=== PATIENT | female | born 1945 | race Hispanic/Latino ===

== ENCOUNTER 2016-07-11 08:00 | Inpatient (IN) | payer MEDICARE, OTHER ==
[2016-07-11 08:01] VITALS: BMI 41.5
[2016-07-11] MEDS ORDERED: Sodium Chloride 0.9% 500 ML IV ONE (09:13)
[2016-07-11] MEDS ORDERED: Bacitracin 500 Units/gm Oint Foilpak UD TOP ONE (09:14)
--- NOTE | 2016-07-11 09:23 | C.PDOC ---
History Of Present Illness 71-year-old female, PMHx includes Asthma and Hypertension, brought to the emergency department accompanied by son with complaints of pain to B/L lower extremities for the past three days. Patient notes associated difficulty while walking. She has Hx of intermittent cellulitis and chronic leg edema. Secondary complaint is watery/non-bloody diarrhea for the past few days with associated mild abdominal discomfort. Son reports that patient fell on to her lower back and buttocks yesterday. Patient denies any nausea/vomiting, headache/injury, LOC , fevers/chills, shortness of breath, chest pain. PMD Edmundo Carrera MD. Time Seen by Provider: 07/11/16 08:43 Chief Complaint (Nursing): GI Problem History Per: Patient, Family History/Exam Limitations: no limitations Onset/Duration Of Symptoms: Days Current Symptoms Are (Timing): Still Present Severity: Mild Past Medical History Reviewed: Historical Data, Nursing Documentation, Vital Signs Vital Signs: Last Vital Signs Temp 98.8 F 07/15/16 07:00 Pulse 120 H 07/15/16 08:00 Resp 20 07/15/16 07:00 BP 127/86 07/15/16 07:00 Pulse Ox 96 07/15/16 07:00 - Medical History PMH: Asthma ("MILD, NO INHALER/MEDS."-NEVER HOSPITALIZED), HTN Family History: States: No Known Family Hx - Social History Hx Alcohol Use: No Hx Substance Use: No - Immunization History Hx Tetanus Toxoid Vaccination: No Hx Influenza Vaccination: No Hx Pneumococcal Vaccination: No Review Of Systems Except As Marked, All Systems Reviewed And Found Negative. Constitutional: Negative for: Fever, Chills Cardiovascular: Negative for: Chest Pain, Palpitations Respiratory: Negative for: Cough, Shortness of Breath Gastrointestinal: Positive for: Abdominal Pain, Diarrhea. Negative for: Nausea , Vomiting Musculoskeletal: Positive for: Leg Pain Skin: Negative for: Rash Neurological: Negative for: Weakness, Numbness, Headache, Dizziness Physical Exam - Physical Exam Appears: Non-toxic, In Acute Distress (in moderate pain ) Skin: Warm, Dry, No Rash Head: Normacephalic Eye(s): bilateral: Normal Inspection Oral Mucosa: Moist, Other (oral thrush on tongue and oral mucosa) Neck: Normal Cardiovascular: Rhythm Regular (tachycardic ) Respiratory: Normal Breath Sounds, No Accessory Muscle Use, No Rales, No Rhonchi , No Wheezing Gastrointestinal/Abdominal: Normal Exam, Bowel Sounds, Soft, No Tenderness, No Guarding, No Rebound, Other (morbidly obese) Extremity: Pedal Edema (+2 pitting, B/L chronic skin changes and wounds without overt evidence of infection), Capillary Refill (< 2 sec all digits ), No Deformity Pulses: Left Dorsalis Pedis: Normal, Right Dorsalis Pedis: Normal Neurological/Psych: Oriented x3 ED Course And Treatment - Laboratory Results Result Diagrams: 07/15/16 07:28 07/15/16 07:28 O2 Sat by Pulse Oximetry: 97 (RA) Pulse Ox Interpretation: Normal Progress Note: Blood work, UA ordered and reviewed. Patient given IV NS bolus, IV morphine. Ct scan abd/pelvis ordered due to persistent abdominal pain and significant leukocytosis. IV Ciprofloxacin and IV Flagyl ordered for colitis/ proctitis. - Physician Consult Information Physician Contacted: Edmundo Carrera Jr. Outcome Of Conversation: Spoke with Dr. Carrera, he agrees with admission for colitis/proctitis, dehydration, leukocytosis with bandemia, chronic leg wounds/ edema. [employer] notified of admission. Disposition - Disposition Disposition: HOSPITALIZED Disposition Time: 12:33 Condition: STABLE - Clinical Impression Clinical Impression: Colitis, Proctitis, Diarrhea, Chronic leg pain, Dehydration - Scribe Statement Nancy Dove All medical record entries made by the Scribe were at my direction and personally dictated by me. I have reviewed the chart and agree that the record accurately reflects my personal performance of the history, physical exam, medical decision making, and the department course for this patient. I have also personally directed, reviewed, and agree with the discharge instructions and disposition. Decision To Admit - Pt Status Changed To: Hospital Disposition Of: Inpatient - Admit Certification Admit to Inpatient:: After my assessment, the patient will require hospitalization for at least two midnights. This is because of the severity of symptoms shown, intensity of services needed, and/or the medical risk in this patient being treated as an outpatient. - InPatient: Physician Admission Certification: I certify that this patient requires 2 or more midnights of care for the following reason:: see notes - . Bed Request Type: Regular Admitting Physician: Edmundo Carrera Jr. Patient Diagnosis: Colitis, Proctitis, Diarrhea, Dehydration, Chronic leg pain, Leukocytosis
[2016-07-11 09:24] LABS: BASO # 0.1 K/uL (0.0-0.2); BASO % 0.3 % (0.0-2.0); EOS % 0.1 % (0.0-4.0); HEMATOCRIT 38.5 % (34.0-47.0); LYMPH # 1.1 K/uL (1.0-4.3); LYMPH % 5.7 % (20.0-40.0); MEAN CORPUSCULAR HEMOGLOBIN 28.4 pg (27.0-31.0); MEAN CORPUSCULAR HGB CONC 32.1 g/dL (33.0-37.0); MEAN PLATELET VOLUME 8.8 fL (7.2-11.7); MONO % 4.9 % (0.0-10.0); WHITE BLOOD COUNT 19.6 K/uL (4.8-10.8)
[2016-07-11 09:28] LABS: MEAN CELL VOLUME 88.4 fL (81.0-99.0); PLATELET COUNT 279 K/uL (130-400)
[2016-07-11] MEDS ORDERED: Morphine 4 MG/ML VIAL ONE ×3 (09:30→15:05)
[2016-07-11] MEDS ORDERED: Sodium Chloride 0.9% 1,000 ML ONE (09:30)
[2016-07-11 09:31] LABS: CHLORIDE 91 mmol/L (98-107)
[2016-07-11 09:32] LABS: POTASSIUM 3.6 mmol/L (3.6-5.2); SODIUM 130 mmol/L (132-148)
[2016-07-11 09:34] LABS: ALKALINE PHOSPHATASE 241 U/L (38-126); AST/SGOT 38 U/L (14-36); BILIRUBIN,TOTAL 0.9 mg/dL (0.2-1.3); BLOOD UREA NITROGEN 24 mg/dL (7-17); CARBON DIOXIDE 28 mmol/L (22-30); GFR AFRICAN-AMERICAN > 60; TOTAL PROTEIN 5.9 g/dL (6.3-8.3)
[2016-07-11 09:35] LABS: ALT/SGPT 76 U/L (9-52); CALCIUM 8.4 mg/dl (8.6-10.4); GLUCOSE,RANDOM 85 mg/dL (65-105)
[2016-07-11 09:55] LABS: NEUTROPHIL 84 % (50-75); REACTIVE LYMPHOCYTES 1 % (0-0); TOTAL CELLS COUNTED 100
[2016-07-11] MEDS ORDERED: Bacitracin 500 Units/gm Oint Foilpak UD ONE (10:44)
--- NOTE | 2016-07-11 12:14 | CT ---
PROCEDURE: CT Abdomen and Pelvis without intravenous contrast HISTORY: leukocytosis, bandemia, diarrhea COMPARISON: None. TECHNIQUE: Axial and reformatted coronal and sagittal CT images of the abdomen and pelvis were obtained without IV or oral contrast administration.. This CT exam was performed using one or more of the following dose reduction techniques: Automated exposure control, adjustment of the mA and/or kV according to patient size, and/or use of iterative reconstruction technique. Contrast Dose: 0 Radiation dose: Total exam DLP = 1227.13 mGy-cm. FINDINGS: LOWER THORAX: Scattered small nodular opacities seen in the lungs. The possibility of metastasis is not totally excluded. The differential diagnosis includes a sequela of prior infection or inflammatory process. LIVER: Unremarkable. No gross lesion or ductal dilatation. GALLBLADDER AND BILE DUCTS: The gallbladder is mildly to moderately distended. No evidence of acute cholecystitis. PANCREAS: Unremarkable. No gross lesion or ductal dilatation. SPLEEN: Unremarkable. ADRENALS: Unremarkable. No mass. KIDNEYS AND URETERS: Unremarkable. No hydronephrosis. No solid mass. VASCULATURE: Unremarkable. No aortic aneurysm. BOWEL: Scattered colonic diverticulosis are seen without evidence of diverticulitis. Mild constipation is noted. There is high density seen at the cecum likely residual contrast from prior study. There is a rectal wall thickening. A surrounding with stranding and inflammatory changes. Findings suspicious for proctitis. Suspicious for anal rectal junction focal thickening and the possibility of tumor is not totally excluded. APPENDIX: Unremarkable. Normal appendix. PERITONEUM: Unremarkable. No free fluid. No free air. LYMPH NODES: Unremarkable. No enlarged lymph nodes. BLADDER: Unremarkable. REPRODUCTIVE: The uterus is mildly enlarged for the patient's age. The right adnexa is also mildly enlarged with th cystic lesion measures 2.5 centimeter P BONES: No acute fracture. OTHER FINDINGS: None. IMPRESSION: Distal rectal wall thickening surrounding with inflammatory changes suggestive of colitis/ proctitis. Suspicious for focal thickening or mass lesion at the anus/ ano-rectal junction. Further assessment is suggested. Mildly dilated large bowel loops and mild constipation. Colonic diverticulosis without evidence of diverticulitis. No CT evidence of cholecystitis pancreatitis or appendicitis. Scattered small lung nodules seen of uncertain etiology. The possibility of lung metastasis is not totally excluded.
[2016-07-11] MEDS ORDERED: Ciprofloxacin 400mg/200ml D5W 200 ML IV STA (12:17)
[2016-07-11] MEDS ORDERED: Ciprofloxacin 400mg/200ml D5W 200 ML IVPB ONE ×2 (12:28→13:19)
[2016-07-11] MEDS ORDERED: metroNIDAZOLE IV 500 mg/100 ml 100 ML ONE ×2 (12:28→18:26)
[2016-07-11] MEDS ORDERED: metroNIDAZOLE IV 500 mg/100 ml 100 ML IV SCH (12:30)
[2016-07-11] MEDS ORDERED: metroNIDAZOLE IV 500 mg/100 ml 100 ML IV STA (12:34)
--- NOTE | 2016-07-11 14:40 | CP.PCM.HP ---
History of Present Illness - History of Present Illness History of Present Illness: Internal medicine H & P for Dr. Mami Pope, PGY-1 Pt S & E at bedside with son in attendence. 71 yo F w/PMH sig for pneumonitis, GERD, Carcinoid tumor, oral thrush, and cellulitis c/o diarrhea x 3 days and B/L LE pain. Diarrhea followed constipation x 2-3 days- nb, watery. Treated w/ Pepto-bismol, soda water, and danielle ian w/o resolution. Admits to 2 episodes of fecal incontinence w/o urinary incontinence that was described as "not feeling like I had to go but a lot came out". 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 Admits to PO thrush x 2 mos with failed Nystatin treatments x 2. Admits Lightheadedness , dizziness, diarrhea, tremors, hoarseness. Denies Fever, chills, MARTIN, Vision changes, Loss of consciousness, Abdominal pain, nausea, vomiting, chest pain, palpitations, SOB. 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, pneumonitis, GERD, chronic PO thrush, DM, HTN, asthma, cellulitis PSH: x 3, LLL resection 25 yrs ago All: PCN SH: Denies Tobacco, ETOH, illicit drug use Home medications as per pharmacy: Zofran 5mg 1 tab TID Cymbalta 60mg 1 cap BID Percocet 5/325 1 tab BID Allopurinol 100mg 1 tab daily K ER 10mEq 1 tab daily Lasix 40mg 1 tab Daily Xanax .25 1 tab TID Protonix 40 mg PRN 1daily Toviaz (overactive bladder med) 8mg 1 daily w/ pharmacy suggesting Oxybutynin 5mg PMD: None/setting up Reisner Present on Admission - Present on Admission Any Indicators Present on Admission: No History of DVT/PE: No History of Uncontrolled Diabetes: No Urinary Catheter: No Decubitus Ulcer Present: No Review of Systems - Review of Systems All systems: reviewed and no additional remarkable complaints except - Constitutional Constitutional: Weakness. absent: Chills, Fever - EENT Eyes: absent: Change in Vision Ears: Dizziness Nose/Mouth/Throat: Dysphagia, Odynophagia, Sore Throat - Cardiovascular Cardiovascular: Leg Edema. absent: Chest Pain, Palpitations - Gastrointestinal Gastrointestinal: Change in Bowel Habits, Constipation, Diarrhea, Fecal Incontinence, Melena, Odynophagia. absent: Abdominal Pain, Nausea, Vomiting - Integumentary Integumentary: Erythema, Rash, Skin Pain, Wounds - Neurological Neurological: Burning Sensations (in feet), Dizziness, Weakness Past Patient History - Past Medical History & Family History Past Medical History?: Yes - Past Social History Smoking Status: Never Smoked - CARDIAC Hx Hypertension: Yes - PULMONARY Hx Asthma: Yes ("MILD, NO INHALER/MEDS."-NEVER HOSPITALIZED) - NEUROLOGICAL Hx Neurological Disorder: No - HEENT Hx HEENT Problems: No - RENAL Hx Chronic Kidney Disease: No - ENDOCRINE/METABOLIC Hx Endocrine Disorders: Yes Hx Diabetes Mellitus Type 2: Yes (?) - HEMATOLOGICAL/ONCOLOGICAL Hx Blood Disorders: Yes Hx Cancer: Yes (LEFT LUNG-PARTIAL LOBE REMOVED-NO CHEMO/RAD.) Other/Comment: ENDOMETRIAL CANCER - INTEGUMENTARY Hx Dermatological Problems: No - MUSCULOSKELETAL/RHEUMATOLOGICAL Hx Musculoskeletal Disorders: No - GASTROINTESTINAL Hx Gastrointestinal Disorders: No - GENITOURINARY/GYNECOLOGICAL Hx Genitourinary Disorders: Yes Other/Comment: ENDOMETRIAL CANCER. - PSYCHIATRIC Hx Substance Use: No - SURGICAL HISTORY Hx Surgeries: Yes Hx Section: Yes Hx Eye Surgery: Yes ("LASER FOR OCCULAR HYPERTENSION") Hx Pulmonary Surgery: Yes (PARTIAL LEFT LOBE REMOVED DUE TO CANCER) - ANESTHESIA Hx Anesthesia: Yes Hx Anesthesia Reactions: No Hx Malignant Hyperthermia: No Meds Allergies/Adverse Reactions: Allergies Allergy/AdvReac Type Severity Reaction Status Date / Time No Known Allergies Allergy Verified 07/11/16 08:15 Physical Exam - Constitutional Appears: Non-toxic, No Acute Distress - Head Exam Head Exam: ATRAUMATIC, NORMAL INSPECTION, NORMOCEPHALIC - Eye Exam Eye Exam: EOMI, Normal appearance, PERRL Pupil Exam: NORMAL ACCOMODATION, PERRL - ENT Exam ENT Exam: absent: Mucous Membranes Moist, Normal Oropharynx (whitish black coating over tongue) - Neck Exam Neck exam: Positive for: Full Rom, Normal Inspection - Respiratory Exam Respiratory Exam: Decreased Breath Sounds (poor inspiratory effort), NORMAL BREATHING PATTERN. absent: Clear to Auscultation Bilateral, Rales, Rhonchi, Wheezes - Cardiovascular Exam Cardiovascular Exam: Tachycardia, +S1, +S2 - GI/Abdominal Exam GI & Abdominal Exam: Hyperactive Bowel Sounds, Soft. absent: Distended (obese) , Guarding, Hernia, Tenderness - Extremities Exam Extremities exam: Positive for: normal capillary refill, pedal edema, tenderness. Negative for: normal inspection - Back Exam Back exam: NORMAL INSPECTION - Neurological Exam Neurological exam: Alert, CN II-XII Intact, Oriented x3 - Psychiatric Exam Psychiatric exam: Normal Affect, Normal Mood - Skin Skin Exam: Pallor, Rash (B/L groin, L>R- erythematous, well circumscribed tender rash/lesion), Warm Additional comments: Tender over B/L L/E, feet w/erythema B/L Results - Vital Signs Recent Vital Signs: Last Vital Signs Temp 98.5 F 07/11/16 08:05 Pulse 109 H 07/11/16 12:00 Resp 20 07/11/16 12:00 BP 128/76 07/11/16 12:00 Pulse Ox 97 07/11/16 12:47 - Labs Result Diagrams: 07/11/16 09:11 07/11/16 09:11 Assessment & Plan - Assessment and Plan (Free Text) Assessment: Diarrhea vs. melena Leukocytosis 19.6 H/H 12.4/38.5 Cipro 400mg Q12H Flagyl 500mg Q8H Solumedrol 40mg Q12H x 2 days NS@100 Tylenol PRN fever FU Blood cxr FU urine cxr FU ESR FU HIV FU CEA level FU C diff x 3 FU FOB FU U/A Lipase 92 B/L LE pain Cont home med: Cymbalta Morphine 4mg Q4H PRN Zofran 4mg Q6H PRN Wound care Transaminitis- mild AST 38 ALT 76 Monitor Avoid hepatotoxic agents if possible History of uricemia Cont home med: Alllopurinol History of HTN BP 128/76 Monitor for now Will consider restarting home med of Cozaar if needed Oral candidiasis/odynophagia Magic mouth wash Nystatin swish and swallow CLD Hyponatremia NA 130 Will monitor due to diarrhea- need IVF Holding home med of Lasix 40mg daily Wound/skin care Wound care referral Skin care to groin & feet PO care Clotrimazole 1% cream to groin Q12H DM ISS Accuchecks GI/DVT ppx Pepcid Contraindications to SCDs 2/2 intolerance- B/L LE pain Contraindications to VTE ppx- poss GI bleed Dispo: Admit to med-surg VS Q4H OOB as johana/ad rajeev CLD DW attending - Date & Time Date: 07/11/16 Time: 14:15 Decision To Admit - Pt Status Changed To: Hospital Disposition Of: Observation - . Bed Request Type: Regular Admitting Physician: Edmundo Carrera Jr.
[2016-07-11] MEDS: Ciprofloxacin 400mg/200ml D5W 200 ML IVPB SCH (15:00)
[2016-07-11] MEDS: Sodium Chloride 0.9% 1,000 ML IV SCH (15:11)
[2016-07-11] MEDS ORDERED: MethylPREDNISolone 40 mg Vial ONE (16:03)
[2016-07-11] MEDS: MethylPREDNISolone 40 mg Vial IVP SCH (16:06)
[2016-07-11] MEDS: Clotrimazole 1% Cream(30 gm) TOP SCH (16:29)
[2016-07-11] MEDS: Mag&Al/Simet/Diphen/Lido 237 ML KIT PO SCH ×3 (16:29→21:58)
[2016-07-11] MEDS: (Novolog) Insulin Aspart, Recombinant 100 u/ml 10 ml vial SC SCH ×2 (17:46→22:00)
[2016-07-11] MEDS: metroNIDAZOLE IV 500 mg/100 ml 100 ML IVPB SCH (18:40)
[2016-07-11] MEDS: Nystatin 100,000 Units/ml Oral Susp 5 ml UD PO SCH ×2 (18:41→21:58)
[2016-07-12 00:45] VITALS: RESP 20
[2016-07-12] MEDS: Sodium Chloride 0.9% 1,000 ML IV SCH ×3 (01:09→22:00)
[2016-07-12] MEDS: Mag&Al/Simet/Diphen/Lido 237 ML KIT PO SCH ×6 (02:17→23:27)
[2016-07-12] MEDS: metroNIDAZOLE IV 500 mg/100 ml 100 ML IVPB SCH ×3 (02:17→20:56)
[2016-07-12] MEDS: MethylPREDNISolone 40 mg Vial IVP SCH ×2 (02:18→13:18)
[2016-07-12] MEDS: Ciprofloxacin 400mg/200ml D5W 200 ML IVPB SCH ×2 (02:19→13:25)
[2016-07-12] MEDS: Clotrimazole 1% Cream(30 gm) TOP SCH ×2 (02:25→13:18)
[2016-07-12] MEDS: (Novolog) Insulin Aspart, Recombinant 100 u/ml 10 ml vial SC SCH ×4 (07:21→22:00)
[2016-07-12 08:12] LABS: BASO % 0.1 % (0.0-2.0); HEMATOCRIT 34.3 % (34.0-47.0); LYMPH # 0.3 K/uL (1.0-4.3); LYMPH % 2.6 % (20.0-40.0); MEAN CELL VOLUME 89.7 fL (81.0-99.0); MEAN CORPUSCULAR HEMOGLOBIN 29.2 pg (27.0-31.0); MEAN CORPUSCULAR HGB CONC 32.5 g/dL (33.0-37.0); MEAN PLATELET VOLUME 8.6 fL (7.2-11.7); MONO # 0.2 K/uL (0.0-0.8); MONO % 1.7 % (0.0-10.0); PLATELET COUNT 215 K/uL (130-400); RED CELL DISTRIBUTION WIDTH 16.9 % (11.5-14.5); WHITE BLOOD COUNT 12.5 K/uL (4.8-10.8)
[2016-07-12 08:17] LABS: CHLORIDE 95 mmol/L (98-107); POTASSIUM 3.6 mmol/L (3.6-5.2); SODIUM 132 mmol/L (132-148)
[2016-07-12 08:19] LABS: GFR AFRICAN-AMERICAN > 60
[2016-07-12 08:20] LABS: ALKALINE PHOSPHATASE 181 U/L (38-126); ALT/SGPT 58 U/L (9-52); AST/SGOT 23 U/L (14-36); BILIRUBIN,TOTAL 0.5 mg/dL (0.2-1.3); BLOOD UREA NITROGEN 18 mg/dL (7-17); CALCIUM 7.8 mg/dl (8.6-10.4); CARBON DIOXIDE 26 mmol/L (22-30); GLUCOSE,RANDOM 102 mg/dL (65-105); TOTAL PROTEIN 5.4 g/dL (6.3-8.3)
[2016-07-12] MEDS: Nystatin 100,000 Units/ml Oral Susp 5 ml UD PO SCH ×4 (09:21→22:00)
[2016-07-12] MEDS ORDERED: LASIX 40 MG PO SCH (10:00)
--- NOTE | 2016-07-12 10:11 | CP.PCM.PN ---
<RaffyMal H - Last Filed: 07/12/16 17:35> Subjective - Date & Time of Evaluation Date of Evaluation: 07/12/16 Time of Evaluation: 09:00 - Subjective Subjective: Patient is seen and examine during rounds with Dr. Carrera. Patient reports that she is feeling a little better and not having as much diarrhea. The son is in the room with the patient. She says that every time he eats food her throat guajardo. She is able to tolerate liquids better than solids. She currently denies fever, chills, nausea, vomiting, chest pain, palpitations, lower leg swelling dysuria, joint pain or stiffness, weakness or dizziness. Objective - Vital Signs/Intake and Output Vital Signs (last 24 hours): Temp Pulse Resp BP Pulse Ox 98.3 F 111 H 20 132/79 95 07/12/16 08:24 07/12/16 08:24 07/12/16 08:24 07/12/16 08:24 07/12/16 08:24 Intake and Output: 07/12/16 07/12/16 06:59 18:59 Intake Total 1040 Balance 1040 - Medications Medications: Current Medications Acetaminophen (Tylenol 325mg Tab) 650 mg PO Q6 PRN PRN Reason: Fever >100.4 F Clotrimazole (Lotrimin 1%) 1 gm TOP Q12H [facility] Last Admin: 07/12/16 02:25 Dose: 1 applic Duloxetine HCl (Cymbalta) 60 mg PO BID [facility] Last Admin: 07/12/16 09:21 Dose: 60 mg Famotidine (Pepcid) 20 mg PO BID [facility] Last Admin: 07/12/16 09:21 Dose: 20 mg Sodium Chloride (Sodium Chloride 0.9%) 1,000 mls @ 100 mls/hr IV .Q10H [facility] Last Admin: 07/12/16 09:22 Dose: 100 mls/hr Ciprofloxacin (Cipro 400mg/200ml Dsw) 200 mls @ 133 mls/hr IVPB Q12H [facility] Last Admin: 07/12/16 02:19 Dose: 133 mls/hr Metronidazole (Flagyl) 100 mls @ 100 mls/hr IVPB Q8H [facility] Last Admin: 07/12/16 09:21 Dose: 100 mls/hr Insulin Aspart (Novolog) 0 unit SC ACHS [facility] PRN Reason: Protocol Last Admin: 07/12/16 07:21 Dose: Not Given Methylprednisolone (Solu-Medrol) 40 mg IVP Q12H [facility] Stop: 07/13/16 14:16 Last Admin: 07/12/16 02:18 Dose: 40 mg Morphine Sulfate (Morphine) 4 mg IVP Q4H PRN PRN Reason: Pain, moderate (4-7) Last Admin: 07/12/16 05:39 Dose: 4 mg Nystatin (Nystatin Oral Susp) 5 ml PO QID [facility] Last Admin: 07/12/16 09:21 Dose: 5 ml Ondansetron HCl (Zofran Inj) 4 mg IVP Q6 PRN PRN Reason: Nausea/Vomiting Oxybutynin Chloride (Ditropan Tab) 5 mg PO TID [facility] Last Admin: 07/12/16 09:21 Dose: 5 mg Saliva Substitute (First Magic Mouthwash) 5 ml PO Q4H [facility] Last Admin: 07/12/16 09:30 Dose: 5 ml - Labs Labs: 07/12/16 08:03 07/12/16 08:03 - Constitutional Appears: Non-toxic, No Acute Distress - Head Exam Head Exam: ATRAUMATIC, NORMAL INSPECTION, NORMOCEPHALIC - Eye Exam Eye Exam: Normal appearance, PERRL Pupil Exam: NORMAL ACCOMODATION - ENT Exam ENT Exam: Normal Exam - Respiratory Exam Respiratory Exam: Clear to Ausculation Bilateral. absent: Rales, Rhonchi, Wheezes - GI/Abdominal Exam GI & Abdominal Exam: Soft, Normal Bowel Sounds. absent: Tenderness - Extremities Exam Extremities Exam: Normal Inspection. absent: Pedal Edema - Back Exam Back Exam: absent: CVA tenderness (L), CVA tenderness (R) - Neurological Exam Neurological Exam: Alert - Psychiatric Exam Psychiatric exam: Normal Affect, Normal Mood - Skin Skin Exam: Dry, Intact, Pallor Assessment and Plan - Assessment and Plan (Free Text) Assessment: Diarrhea vs. melena 07/12: WBC is improved continue with current managment, consider D/C tomorrow if patient improves. Cd diff negative, blood culture negative, HIV negative, CE Leukocytosis 19.6 H/H 12.4/38.5 Cipro 400mg Q12H Flagyl 500mg Q8H Solumedrol 40mg Q12H x 2 days NS@100 Tylenol PRN fever FU Blood cxr FU urine cxr FU ESR FU HIV FU CEA level FU C diff x 3 FU FOB FU U/A Lipase 92 B/L LE pain Cont home med: Cymbalta Morphine 4mg Q4H PRN Zofran 4mg Q6H PRN Wound care Transaminitis- mild AST 38 ALT 76 Monitor Avoid hepatotoxic agents if possible History of uricemia Cont home med: Alllopurinol History of HTN BP 128/76 Monitor for now Will consider restarting home med of Cozaar if needed Oral candidiasis/odynophagia Magic mouth wash Nystatin swish and swallow CLD Hyponatremia NA 130 Will monitor due to diarrhea- need IVF Holding home med of Lasix 40mg daily Wound/skin care Wound care referral Skin care to groin & feet PO care Clotrimazole 1% cream to groin Q12H DM ISS Accuchecks GI/DVT ppx Pepcid Contraindications to SCDs 2/2 intolerance- B/L LE pain Contraindications to VTE ppx- poss GI bleed Dispo: Admit to med-surg VS Q4H OOB as johana/ad rajeev CLD DW attending <Edmundo Carrera Jr. - Last Filed: 07/13/16 15:08> Objective - Vital Signs/Intake and Output Vital Signs (last 24 hours): Temp Pulse Resp BP Pulse Ox 98.3 F 98 H 20 132/78 96 07/13/16 08:00 07/13/16 08:00 07/13/16 08:00 07/13/16 08:00 07/13/16 08:00 - Medications Medications: Current Medications Acetaminophen (Tylenol 325mg Tab) 650 mg PO Q6 PRN PRN Reason: Fever >100.4 F Clotrimazole (Lotrimin 1%) 1 gm TOP Q12H [facility] Last Admin: 07/13/16 14:34 Dose: 1 applic Collagenase (Santyl) 2 gm TOP DAILY [facility] Last Admin: 07/13/16 11:17 Dose: 1 appful Duloxetine HCl (Cymbalta) 60 mg PO BID [facility] Last Admin: 07/13/16 11:14 Dose: 60 mg Famotidine (Pepcid) 20 mg PO BID [facility] Last Admin: 07/13/16 11:16 Dose: 20 mg Sodium Chloride (Sodium Chloride 0.9%) 1,000 mls @ 100 mls/hr IV .Q10H [facility] Last Admin: 07/13/16 14:39 Dose: 100 mls/hr Ciprofloxacin (Cipro 400mg/200ml Dsw) 200 mls @ 133 mls/hr IVPB Q12H [facility] Last Admin: 07/13/16 14:32 Dose: 133 mls/hr Metronidazole (Flagyl) 100 mls @ 100 mls/hr IVPB Q8H [facility] Last Admin: 07/13/16 11:15 Dose: 100 mls/hr Insulin Aspart (Novolog) 0 unit SC ACHS [facility] PRN Reason: Protocol Last Admin: 07/13/16 12:31 Dose: Not Given Morphine Sulfate (Morphine) 4 mg IVP Q4H PRN PRN Reason: Pain, moderate (4-7) Last Admin: 07/13/16 14:30 Dose: 4 mg Nystatin (Nystatin Oral Susp) 5 ml PO QID [facility] Last Admin: 07/13/16 14:32 Dose: 5 ml Ondansetron HCl (Zofran Inj) 4 mg IVP Q6 PRN PRN Reason: Nausea/Vomiting Last Admin: 07/12/16 20:42 Dose: 4 mg Oxybutynin Chloride (Ditropan Tab) 5 mg PO TID [facility] Last Admin: 07/13/16 14:33 Dose: 5 mg Saliva Substitute ([facility] Magic Mouthwash) 5 ml PO Q4H [facility] Last Admin: 07/13/16 14:33 Dose: 5 ml - Labs Labs: 07/13/16 07:30 07/13/16 07:30 Attending/Attestation - Attestation I have personally seen and examined this patient.: Yes I have fully participated in the care of the patient.: Yes I have reviewed all pertinent clinical information, including history, physical exam and plan: Yes Notes (Text): 07/13/16 15:08 Patient seen and examined. Agree with resident note and plan of care
[2016-07-12 10:27] LABS: NEUTROPHIL 91 % (50-75); TOTAL CELLS COUNTED 100
[2016-07-12 10:29] LABS: LARGE PLATELETS PRESENT; SPHEROCYTES SLIGHT
[2016-07-12] MEDS: Collagenase 250 Units/gm Ointment(30 gm) TOP SCH (13:18)
[2016-07-13] MEDS: MethylPREDNISolone 40 mg Vial IVP SCH ×2 (02:45→14:42)
[2016-07-13] MEDS: Mag&Al/Simet/Diphen/Lido 237 ML KIT PO SCH ×6 (02:46→21:44)
[2016-07-13] MEDS: Clotrimazole 1% Cream(30 gm) TOP SCH ×2 (02:46→14:34)
[2016-07-13] MEDS: Ciprofloxacin 400mg/200ml D5W 200 ML IVPB SCH ×2 (02:46→14:32)
[2016-07-13] MEDS: metroNIDAZOLE IV 500 mg/100 ml 100 ML IVPB SCH ×3 (02:47→17:34)
[2016-07-13] MEDS: Sodium Chloride 0.9% 1,000 ML IV SCH ×3 (06:15→17:36)
[2016-07-13 07:43] LABS: BASO % 0.2 % (0.0-2.0); HEMATOCRIT 33.6 % (34.0-47.0); LYMPH # 0.4 K/uL (1.0-4.3); LYMPH % 3.1 % (20.0-40.0); MEAN CELL VOLUME 88.5 fL (81.0-99.0); MEAN CORPUSCULAR HEMOGLOBIN 28.9 pg (27.0-31.0); MEAN CORPUSCULAR HGB CONC 32.6 g/dL (33.0-37.0); MEAN PLATELET VOLUME 8.5 fL (7.2-11.7); MONO # 0.5 K/uL (0.0-0.8); MONO % 3.9 % (0.0-10.0); PLATELET COUNT 210 K/uL (130-400); RED CELL DISTRIBUTION WIDTH 17.2 % (11.5-14.5); WHITE BLOOD COUNT 13.8 K/uL (4.8-10.8)
[2016-07-13 08:00] LABS: CHLORIDE 97 mmol/L (98-107); POTASSIUM 3.5 mmol/L (3.6-5.2); SODIUM 133 mmol/L (132-148)
[2016-07-13 08:02] LABS: AST/SGOT 25 U/L (14-36); BILIRUBIN,TOTAL 0.5 mg/dL (0.2-1.3); GFR AFRICAN-AMERICAN > 60
[2016-07-13 08:03] LABS: ALKALINE PHOSPHATASE 172 U/L (38-126); ALT/SGPT 52 U/L (9-52); BLOOD UREA NITROGEN 17 mg/dL (7-17); CARBON DIOXIDE 26 mmol/L (22-30); GLUCOSE,RANDOM 99 mg/dL (65-105); TOTAL PROTEIN 5.1 g/dL (6.3-8.3)
[2016-07-13] MEDS: (Novolog) Insulin Aspart, Recombinant 100 u/ml 10 ml vial SC SCH ×4 (08:19→21:46)
[2016-07-13 08:51] LABS: NEUTROPHIL 92 % (50-75); TOTAL CELLS COUNTED 100
[2016-07-13] MEDS: Nystatin 100,000 Units/ml Oral Susp 5 ml UD PO SCH ×4 (11:13→21:44)
[2016-07-13] MEDS: Collagenase 250 Units/gm Ointment(30 gm) TOP SCH (11:17)
--- NOTE | 2016-07-13 11:38 | CP.PCM.PN ---
<Mal Akbar H - Last Filed: 07/13/16 21:11> Subjective - Date & Time of Evaluation Date of Evaluation: 07/13/16 Time of Evaluation: 09:00 - Subjective Subjective: Dr. Carrera service: Patient is seen and examined in room. Patient is with his son and sitting up in bed. She reports to feeling better but having a few eipsodes of diarrhea yesterday and today. The son says she might be able to go home tomorrow simply because they need to arrange for transporation due to patients inablity to ambulate. The patient's son expressed concerns that the diarrhea will not improve after discharge. Objective - Vital Signs/Intake and Output Vital Signs (last 24 hours): Temp Pulse Resp BP Pulse Ox 98.3 F 98 H 20 132/78 96 07/13/16 08:00 07/13/16 08:00 07/13/16 08:00 07/13/16 08:00 07/13/16 08:00 - Medications Medications: Current Medications Acetaminophen (Tylenol 325mg Tab) 650 mg PO Q6 PRN PRN Reason: Fever >100.4 F Clotrimazole (Lotrimin 1%) 1 gm TOP Q12H [facility] Last Admin: 07/13/16 02:46 Dose: 1 applic Collagenase (Santyl) 2 gm TOP DAILY [facility] Last Admin: 07/13/16 11:17 Dose: 1 appful Duloxetine HCl (Cymbalta) 60 mg PO BID [facility] Last Admin: 07/13/16 11:14 Dose: 60 mg Famotidine (Pepcid) 20 mg PO BID [facility] Last Admin: 07/13/16 11:16 Dose: 20 mg Sodium Chloride (Sodium Chloride 0.9%) 1,000 mls @ 100 mls/hr IV .Q10H [facility] Last Admin: 07/13/16 06:15 Dose: Not Given Ciprofloxacin (Cipro 400mg/200ml Dsw) 200 mls @ 133 mls/hr IVPB Q12H [facility] Last Admin: 07/13/16 02:46 Dose: 133 mls/hr Metronidazole (Flagyl) 100 mls @ 100 mls/hr IVPB Q8H [facility] Last Admin: 07/13/16 11:15 Dose: 100 mls/hr Insulin Aspart (Novolog) 0 unit SC ACHS [facility] PRN Reason: Protocol Last Admin: 07/13/16 08:19 Dose: Not Given Methylprednisolone (Solu-Medrol) 40 mg IVP Q12H [facility] Stop: 07/13/16 14:16 Last Admin: 07/13/16 02:45 Dose: 40 mg Morphine Sulfate (Morphine) 4 mg IVP Q4H PRN PRN Reason: Pain, moderate (4-7) Last Admin: 07/13/16 05:48 Dose: 4 mg Nystatin (Nystatin Oral Susp) 5 ml PO QID [facility] Last Admin: 07/13/16 11:13 Dose: 5 ml Ondansetron HCl (Zofran Inj) 4 mg IVP Q6 PRN PRN Reason: Nausea/Vomiting Last Admin: 07/12/16 20:42 Dose: 4 mg Oxybutynin Chloride (Ditropan Tab) 5 mg PO TID [facility] Last Admin: 07/13/16 11:15 Dose: 5 mg Saliva Substitute (First Magic Mouthwash) 5 ml PO Q4H [facility] Last Admin: 07/13/16 11:15 Dose: 5 ml - Labs Labs: 07/13/16 07:30 07/13/16 07:30 - Constitutional Appears: Non-toxic, No Acute Distress - Head Exam Head Exam: NORMAL INSPECTION - Eye Exam Eye Exam: Normal appearance Pupil Exam: NORMAL ACCOMODATION - Respiratory Exam Respiratory Exam: Clear to Ausculation Bilateral. absent: Rhonchi, Wheezes - Cardiovascular Exam Cardiovascular Exam: REGULAR RHYTHM, RRR, +S1, +S2 - GI/Abdominal Exam GI & Abdominal Exam: Soft, Normal Bowel Sounds. absent: Tenderness - Extremities Exam Extremities Exam: Normal Inspection. absent: Pedal Edema - Back Exam Back Exam: NORMAL INSPECTION - Psychiatric Exam Psychiatric exam: Normal Affect, Normal Mood - Skin Skin Exam: Normal Color Assessment and Plan - Assessment and Plan (Free Text) Assessment: Diarrhea vs. melena 4/2: All cultures are negative, patient still having diarrhea, may discharge tomorrow if symptoms improve. continue with current IV antibiotics. /: WBC is improved continue with current managment, consider D/C tomorrow if patient improves. Cd diff negative, blood culture negative, HIV negative, CE Leukocytosis 19.6 H/H 12.4/38.5 Cipro 400mg Q12H Flagyl 500mg Q8H Solumedrol 40mg Q12H x 2 days NS@100 Tylenol PRN fever FU Blood cxr FU urine cxr FU ESR FU HIV FU CEA level FU C diff x 3 FU FOB FU U/A Lipase 92 B/L LE pain Cont home med: Cymbalta Morphine 4mg Q4H PRN Zofran 4mg Q6H PRN Wound care Transaminitis- mild AST 38 ALT 76 Monitor Avoid hepatotoxic agents if possible History of uricemia Cont home med: Alllopurinol History of HTN BP 128/76 Monitor for now Will consider restarting home med of Cozaar if needed Oral candidiasis/odynophagia Magic mouth wash Nystatin swish and swallow CLD Hyponatremia NA 130 Will monitor due to diarrhea- need IVF Holding home med of Lasix 40mg daily Wound/skin care Wound care referral Skin care to groin & feet PO care Clotrimazole 1% cream to groin Q12H DM ISS Accuchecks GI/DVT ppx Pepcid Contraindications to SCDs 2/2 intolerance- B/L LE pain Contraindications to VTE ppx- poss GI bleed Dispo: Admit to med-surg VS Q4H OOB as johana/ad raejev CLD DW attending <Edmundo Carrera Jr. - Last Filed: 07/25/16 16:39> Objective - Vital Signs/Intake and Output Vital Signs (last 24 hours): Temp Pulse Resp BP Pulse Ox 98.8 F 120 H 20 127/86 97 07/15/16 07:00 07/15/16 08:00 07/15/16 07:00 07/15/16 07:00 07/23/16 06:44 - Labs Labs: 07/15/16 07:28 07/15/16 07:28 Attending/Attestation - Attestation I have personally seen and examined this patient.: Yes I have fully participated in the care of the patient.: Yes I have reviewed all pertinent clinical information, including history, physical exam and plan: Yes Notes (Text): 07/25/16 16:38 Patient seen and examined. Review resident note in plan of care. Agree with findings and plan
[2016-07-13] MEDS ORDERED: Potassium Chloride 20 mEq ER Tab PO ONE (15:45)
[2016-07-14] MEDS: Mag&Al/Simet/Diphen/Lido 237 ML KIT PO SCH ×6 (02:05→22:05)
[2016-07-14] MEDS: Ciprofloxacin 400mg/200ml D5W 200 ML IVPB SCH ×2 (02:06→14:39)
[2016-07-14] MEDS: metroNIDAZOLE IV 500 mg/100 ml 100 ML IVPB SCH ×3 (02:06→18:28)
[2016-07-14] MEDS: Clotrimazole 1% Cream(30 gm) TOP SCH ×2 (02:07→14:38)
[2016-07-14 07:46] LABS: BASO % 0.2 % (0.0-2.0); HEMATOCRIT 33.2 % (34.0-47.0); LYMPH # 0.8 K/uL (1.0-4.3); LYMPH % 6.3 % (20.0-40.0); MEAN CELL VOLUME 88.9 fL (81.0-99.0); MEAN CORPUSCULAR HEMOGLOBIN 28.7 pg (27.0-31.0); MEAN CORPUSCULAR HGB CONC 32.3 g/dL (33.0-37.0); MEAN PLATELET VOLUME 8.7 fL (7.2-11.7); MONO % 8.3 % (0.0-10.0); PLATELET COUNT 214 K/uL (130-400); RED CELL DISTRIBUTION WIDTH 17.4 % (11.5-14.5)
[2016-07-14 07:56] LABS: CHLORIDE 98 mmol/L (98-107); POTASSIUM 3.5 mmol/L (3.6-5.2); SODIUM 132 mmol/L (132-148)
[2016-07-14 07:58] LABS: GFR AFRICAN-AMERICAN > 60
[2016-07-14 07:59] LABS: ALB/GLOB RATIO 1.1 (1.0-2.1); ALKALINE PHOSPHATASE 177 U/L (38-126); ALT/SGPT 50 U/L (9-52); AST/SGOT 26 U/L (14-36); BILIRUBIN,TOTAL 0.5 mg/dL (0.2-1.3); BLOOD UREA NITROGEN 17 mg/dL (7-17); CARBON DIOXIDE 26 mmol/L (22-30); GLUCOSE,RANDOM 134 mg/dL (65-105); TOTAL PROTEIN 4.9 g/dL (6.3-8.3)
[2016-07-14 09:30] LABS: NEUTROPHIL 83 % (50-75); REACTIVE LYMPHOCYTES 1 % (0-0); TOTAL CELLS COUNTED 100
[2016-07-14] MEDS: Collagenase 250 Units/gm Ointment(30 gm) TOP SCH (11:37)
[2016-07-14] MEDS: Sodium Chloride 0.9% 1,000 ML IV SCH (11:38)
[2016-07-14] MEDS: (Novolog) Insulin Aspart, Recombinant 100 u/ml 10 ml vial SC SCH ×4 (11:41→22:03)
[2016-07-14] MEDS: Nystatin 100,000 Units/ml Oral Susp 5 ml UD PO SCH ×4 (11:50→22:05)
--- NOTE | 2016-07-14 12:58 | CP.PCM.PN ---
<Alfonso Valdez - Last Filed: 07/14/16 12:55> Subjective - Date & Time of Evaluation Date of Evaluation: 07/14/16 Time of Evaluation: 12:55 - Subjective Subjective: PGY-1 note for medicine service Pt seen and examined at bedside. Pt was very confused this morning. Per staff she has been hallucinating, stating her son was there in the room with her and was going to take all her money. Pt otherwise has no physical complaints and denies any fevers, chills, chest pain, sob, nausea or vomiting. Objective - Vital Signs/Intake and Output Vital Signs (last 24 hours): Temp Pulse Resp BP Pulse Ox 97.7 F 98 H 20 131/79 97 07/14/16 00:00 07/14/16 00:00 07/14/16 00:00 07/14/16 00:00 07/14/16 00:00 Intake and Output: 07/14/16 07/14/16 06:59 18:59 Intake Total 1100 Balance 1100 - Medications Medications: Current Medications Acetaminophen (Tylenol 325mg Tab) 650 mg PO Q6 PRN PRN Reason: Fever >100.4 F Clotrimazole (Lotrimin 1%) 1 gm TOP Q12H [facility] Last Admin: 07/14/16 02:07 Dose: 1 applic Collagenase (Santyl) 2 gm TOP DAILY [facility] Last Admin: 07/14/16 11:37 Dose: 1 applic Duloxetine HCl (Cymbalta) 60 mg PO BID [facility] Last Admin: 07/14/16 11:35 Dose: 60 mg Famotidine (Pepcid) 20 mg PO BID [facility] Last Admin: 07/14/16 11:36 Dose: 20 mg Sodium Chloride (Sodium Chloride 0.9%) 1,000 mls @ 100 mls/hr IV .Q10H [facility] Last Admin: 07/14/16 11:38 Dose: 100 mls/hr Ciprofloxacin (Cipro 400mg/200ml Dsw) 200 mls @ 133 mls/hr IVPB Q12H [facility] Last Admin: 07/14/16 02:06 Dose: 133 mls/hr Metronidazole (Flagyl) 100 mls @ 100 mls/hr IVPB Q8H [facility] Last Admin: 07/14/16 11:39 Dose: 100 mls/hr Insulin Aspart (Novolog) 0 unit SC ACHS [facility] PRN Reason: Protocol Last Admin: 07/14/16 11:52 Dose: Not Given Morphine Sulfate (Morphine) 2 mg IVP Q4H PRN PRN Reason: Pain, moderate (4-7) Nystatin (Nystatin Oral Susp) 5 ml PO QID [facility] Last Admin: 07/14/16 11:50 Dose: 5 ml Ondansetron HCl (Zofran Inj) 4 mg IVP Q6 PRN PRN Reason: Nausea/Vomiting Last Admin: 07/12/16 20:42 Dose: 4 mg Oxybutynin Chloride (Ditropan Tab) 5 mg PO TID [facility] Last Admin: 07/14/16 11:37 Dose: 5 mg Saliva Substitute (First Magic Mouthwash) 5 ml PO Q4H [facility] Last Admin: 07/14/16 11:40 Dose: 5 ml - Labs Labs: 07/14/16 07:31 07/14/16 07:31 - Constitutional Appears: Non-toxic, Chronically Ill - Head Exam Head Exam: ATRAUMATIC, NORMOCEPHALIC - ENT Exam ENT Exam: Mucous Membranes Moist - Respiratory Exam Respiratory Exam: Clear to Ausculation Bilateral, NORMAL BREATHING PATTERN - Cardiovascular Exam Cardiovascular Exam: +S1, +S2 - GI/Abdominal Exam GI & Abdominal Exam: Soft, Normal Bowel Sounds. absent: Tenderness - Extremities Exam Additional comments: Lower extremities had diffuse scaling, erythema - Neurological Exam Neurological Exam: Alert, Awake - Skin Skin Exam: Dry, Warm Assessment and Plan - Assessment and Plan (Free Text) Assessment: Diarrhea - resolved - Leukocytosis trending down - 12 today - Mildly hypokalemic, repleted, will continue to monitor B/L LE pain - Resolved - Cont home med: Cymbalta - Morphine 4mg Q4H PRN - Zofran 4mg Q6H PRN - Wound care Transaminitis- mild - AST 38 - ALT 76 - Monitor - Avoid hepatotoxic agents if possible History of uricemia - Cont home med: Alllopurinol History of HTN - Monitor for now - Will consider restarting home med of Cozaar if needed Oral candidiasis/odynophagia - Magic mouth wash - Nystatin swish and swallow - CLD Hyponatremia - Resolved - continue to monitor - Holding home med of Lasix 40mg daily Wound/skin care - Wound care referral - Skin care to groin & feet - PO care - Clotrimazole 1% cream to groin Q12H DM - ISS - Accuchecks GI/DVT ppx - Pepcid - Contraindications to SCDs 2/2 intolerance- B/L LE pain - Contraindications to VTE ppx- poss GI bleed DW attending <Edmundo Carrera Jr. - Last Filed: 07/15/16 11:12> Objective - Vital Signs/Intake and Output Vital Signs (last 24 hours): Temp Pulse Resp BP Pulse Ox 98.8 F 120 H 20 127/86 96 07/15/16 07:00 07/15/16 07:00 07/15/16 07:00 07/15/16 07:00 07/15/16 07:00 Intake and Output: 07/15/16 07/15/16 06:59 18:59 Intake Total 2200 Balance 2200 - Medications Medications: Current Medications Acetaminophen (Tylenol 325mg Tab) 650 mg PO Q6 PRN PRN Reason: Fever >100.4 F Last Admin: 07/15/16 01:10 Dose: 650 mg Clotrimazole (Lotrimin 1%) 1 gm TOP Q12H [facility] Last Admin: 07/15/16 02:20 Dose: 1 applic Collagenase (Santyl) 2 gm TOP DAILY [facility] Last Admin: 07/15/16 10:36 Dose: 1 applic Duloxetine HCl (Cymbalta) 60 mg PO BID [facility] Last Admin: 07/15/16 10:35 Dose: 60 mg Famotidine (Pepcid) 20 mg PO BID [facility] Last Admin: 07/15/16 10:35 Dose: 20 mg Sodium Chloride (Sodium Chloride 0.9%) 1,000 mls @ 100 mls/hr IV .Q10H [facility] Last Admin: 07/15/16 09:54 Dose: Not Given Ciprofloxacin (Cipro 400mg/200ml Dsw) 200 mls @ 133 mls/hr IVPB Q12H [facility] Last Admin: 07/15/16 02:20 Dose: 133 mls/hr Metronidazole (Flagyl) 100 mls @ 100 mls/hr IVPB Q8H [facility] Last Admin: 07/15/16 10:34 Dose: 100 mls/hr Insulin Aspart (Novolog) 0 unit SC ACHS [facility] PRN Reason: Protocol Last Admin: 07/15/16 08:53 Dose: Not Given Morphine Sulfate (Morphine) 2 mg IVP Q4H PRN PRN Reason: Pain, moderate (4-7) Nystatin (Nystatin Oral Susp) 5 ml PO QID [facility] Last Admin: 07/15/16 10:34 Dose: 5 ml Ondansetron HCl (Zofran Inj) 4 mg IVP Q6 PRN PRN Reason: Nausea/Vomiting Last Admin: 07/12/16 20:42 Dose: 4 mg Oxybutynin Chloride (Ditropan Tab) 5 mg PO TID [facility] Last Admin: 07/15/16 10:34 Dose: 5 mg Potassium Chloride (K-Dur 20 Meq Er Tab) 20 meq PO ONCE ONE Stop: 07/15/16 13:19 Saliva Substitute (First Magic Mouthwash) 5 ml PO Q4H [facility] Last Admin: 07/15/16 10:34 Dose: 5 ml - Labs Labs: 07/15/16 07:28 07/15/16 07:28 Attending/Attestation - Attestation I have personally seen and examined this patient.: Yes I have fully participated in the care of the patient.: Yes I have reviewed all pertinent clinical information, including history, physical exam and plan: Yes Notes (Text): 07/15/16 11:12 Patient seen and examined, agree with the resident known of plan of care.
[2016-07-15] MEDS: metroNIDAZOLE IV 500 mg/100 ml 100 ML IVPB SCH ×2 (01:05→10:34)
[2016-07-15] MEDS: Mag&Al/Simet/Diphen/Lido 237 ML KIT PO SCH ×4 (01:15→14:35)
[2016-07-15] MEDS: Ciprofloxacin 400mg/200ml D5W 200 ML IVPB SCH ×2 (02:20→14:41)
[2016-07-15] MEDS: Clotrimazole 1% Cream(30 gm) TOP SCH ×2 (02:20→14:39)
[2016-07-15 07:45] LABS: BASO % 0.3 % (0.0-2.0); EOS # 0.1 K/uL (0.0-0.7); EOS % 0.7 % (0.0-4.0); HEMATOCRIT 37.9 % (34.0-47.0); LYMPH # 2.3 K/uL (1.0-4.3); LYMPH % 17.7 % (20.0-40.0); MEAN CELL VOLUME 88.9 fL (81.0-99.0); MEAN CORPUSCULAR HEMOGLOBIN 28.5 pg (27.0-31.0); MEAN PLATELET VOLUME 8.1 fL (7.2-11.7); MONO % 8.2 % (0.0-10.0); RED CELL DISTRIBUTION WIDTH 17.2 % (11.5-14.5); WHITE BLOOD COUNT 12.7 K/uL (4.8-10.8)
[2016-07-15 07:55] LABS: CHLORIDE 99 mmol/L (98-107); POTASSIUM 3.5 mmol/L (3.6-5.2); SODIUM 137 mmol/L (132-148)
[2016-07-15 07:57] LABS: AST/SGOT 36 U/L (14-36); BILIRUBIN,TOTAL 0.5 mg/dL (0.2-1.3); CARBON DIOXIDE 26 mmol/L (22-30); GFR AFRICAN-AMERICAN > 60
[2016-07-15 07:58] LABS: ALB/GLOB RATIO 1.1 (1.0-2.1); ALKALINE PHOSPHATASE 195 U/L (38-126); ALT/SGPT 45 U/L (9-52); BLOOD UREA NITROGEN 10 mg/dL (7-17); CALCIUM 7.8 mg/dl (8.6-10.4); GLUCOSE,RANDOM 81 mg/dL (65-105)
[2016-07-15] MEDS: (Novolog) Insulin Aspart, Recombinant 100 u/ml 10 ml vial SC SCH ×2 (08:53→12:00)
[2016-07-15 09:15] VITALS: BP 127/86; PULSE 120; TEMP 98.8
[2016-07-15] MEDS ORDERED: Potassium Chloride 20 mEq ER Tab PO ONE ×2 (09:46→13:18)
[2016-07-15] MEDS: Sodium Chloride 0.9% 1,000 ML IV SCH ×2 (09:54)
[2016-07-15] MEDS: Nystatin 100,000 Units/ml Oral Susp 5 ml UD PO SCH ×2 (10:34→14:34)
[2016-07-15] MEDS: Collagenase 250 Units/gm Ointment(30 gm) TOP SCH (10:36)
--- NOTE | 2016-07-15 15:28 | CP.PCM.DIS ---
Provider - Provider Date of Admission: 07/11/16 12:33 Attending physician: Edmundo Carrera Jr, MD Primary care physician: Debi Time Spent in preparation of Discharge (in minutes): 31 Hospital Course - Lab Results Lab Results: Micro Results 07/11/16 14:48 Blood Blood Culture - Preliminary NO GROWTH AFTER 4 DAYS Most Recent Lab Values WBC 12.7 K/uL (4.8-10.8) H 07/15/16 07:28 RBC 4.26 Mil/uL (3.80-5.20) 07/15/16 07:28 Hgb 12.1 g/dL (11.0-16.0) 07/15/16 07:28 Hct 37.9 % (34.0-47.0) 07/15/16 07:28 MCV 88.9 fL (81.0-99.0) 07/15/16 07:28 MCH 28.5 pg (27.0-31.0) 07/15/16 07:28 MCHC 32.0 g/dL (33.0-37.0) L 07/15/16 07:28 RDW 17.2 % (11.5-14.5) H 07/15/16 07:28 Plt Count 242 K/uL (130-400) 07/15/16 07:28 MPV 8.1 fL (7.2-11.7) 07/15/16 07:28 Neut % (Auto) 73.1 % (50.0-75.0) 07/15/16 07:28 Lymph % (Auto) 17.7 % (20.0-40.0) L 07/15/16 07:28 [place] % (Auto) 8.2 % (0.0-10.0) 07/15/16 07:28 Eos % (Auto) 0.7 % (0.0-4.0) 07/15/16 07:28 Baso % (Auto) 0.3 % (0.0-2.0) 07/15/16 07:28 Neut # 9.3 K/uL (1.8-7.0) H 07/15/16 07:28 Lymph # 2.3 K/uL (1.0-4.3) 07/15/16 07:28 [place] # 1.0 K/uL (0.0-0.8) H 07/15/16 07:28 Eos # 0.1 K/uL (0.0-0.7) 07/15/16 07:28 Baso # 0.0 K/uL (0.0-0.2) 07/15/16 07:28 Neutrophils % (Manual) 83 % (50-75) H 07/14/16 07:31 Band Neutrophils % 5 % (0-2) H 07/14/16 07:31 Lymphocytes % (Manual) 6 % (20-40) L 07/14/16 07:31 Reactive Lymphs % 1 % (0-0) H 07/14/16 07:31 Monocytes % (Manual) 5 % (0-10) 07/14/16 07:31 Platelet Estimate Normal (NORMAL) 07/14/16 07:31 Large Platelets Present 07/12/16 08:03 Hypochromasia (manual) Slight 07/14/16 07:31 Anisocytosis (manual) Slight 07/14/16 07:31 Spherocytes Slight 07/12/16 08:03 Ovalocytes Slight 07/13/16 07:30 ESR 40 mm/hr (0-20) H 07/15/16 07:28 Sodium 137 mmol/L (132-148) 07/15/16 07:28 Potassium 3.5 mmol/L (3.6-5.2) L 07/15/16 07:28 Chloride 99 mmol/L (98-107) 07/15/16 07:28 Carbon Dioxide 26 mmol/L (22-30) 07/15/16 07:28 Anion Gap 16 (10-20) 07/15/16 07:28 BUN 10 mg/dL (7-17) 07/15/16 07:28 Creatinine 0.6 MG/DL (0.7-1.2) L 07/15/16 07:28 Est GFR ( Amer) > 60 07/15/16 07:28 Est GFR (Non-Af Amer) > 60 07/15/16 07:28 POC Glucose (mg/dL) 137 mg/dL (65-110) H 07/15/16 11:33 Random Glucose 81 mg/dL (65-105) 07/15/16 07:28 Calcium 7.8 mg/dl (8.6-10.4) L 07/15/16 07:28 Total Bilirubin 0.5 mg/dL (0.2-1.3) 07/15/16 07:28 AST 36 U/L (14-36) D 07/15/16 07:28 ALT 45 U/L (9-52) 07/15/16 07:28 Alkaline Phosphatase 195 U/L (38-126) H 07/15/16 07:28 Total Protein 5.0 g/dL (6.3-8.3) L 07/15/16 07:28 Albumin 2.6 g/dL (3.5-5.0) L 07/15/16 07:28 Globulin 2.4 gm/dL (2.2-3.9) 07/15/16 07:28 Albumin/Globulin Ratio 1.1 (1.0-2.1) 07/15/16 07:28 Lipase 92 U/L (23-300) 07/11/16 09:11 Carcinoembryonic Ag 5.0 ng/mL (0-3.0) H 07/15/16 07:28 Stool Occult Blood Negative (NEGATIVE) 07/11/16 22:51 C. difficile Ag & Toxin Negative (NEGATIVE) 07/11/16 Unknown - Hospital Course Hospital Course: On hospital admission 71 yo F w/PMH sig for pneumonitis, GERD, Carcinoid tumor, oral thrush, and cellulitis c/o diarrhea x 3 days and B/L LE pain. Diarrhea followed constipation x 2-3 days- nb, watery. Treated w/ Pepto-bismol, soda water, and danielle ian w/o resolution. Admits to 2 episodes of fecal incontinence w/o urinary incontinence that was described as "not feeling like I had to go but a lot came out". Diarrhea acutely worsened 1 day [employer] - pt reports Diarrhea x 8 - profusely watery diarrhea that became black, thick, tarry, malodorous. Admits to PO thrush x 2 mos with failed Nystatin treatments x 2. Admits Lightheadedness , dizziness, diarrhea, tremors, hoarseness. Denies Fever, chills, MARTIN, Vision changes, Loss of consciousness, Abdominal pain, nausea, vomiting, chest pain, palpitations, SOB. On hospital course Pt was admitted for diarrhea vs melena and bilateral leg pain. Pt was restarted on her home medications and also started on Cipro and Flagyl. A fecal occult blood test was negative, ruling out GI bleed. C diff was ordered and was also negative. Pt was found to have oral candidiasis and was treated appropriately. Pt symptomatically began to improve. Pt did have episodes of confusion and so IV steroids were stopped. For the lower extremity pain, that was caused by superficial, dry and scaly skin, topical treatments were used. She was discharged in stable condition to go to rehab for further management. Pt stated at discharge that her diarrhea and lower extremity pain had resolved. She was discharged with 5 more days of antibiotics to the rehab center for further treatment and rehabilitation. Ciprofloxacin IV [Cipro] 400 mg IVPB Q12 5 Days metroNIDAZOLE IV 500 mg/100 ml [Flagyl IV] 500 mg IV Q8H 5 Days Diagnoses Diarrhea B/L leg pain HTN Oral candidiasis Transaminitis - mild This is a summary of hospital events, please refer to EMR for further details. - Date & Time of H&P Date of H&P: 07/11/16 Time of H&P: 14:35 Discharge Exam - Head Exam Head Exam: ATRAUMATIC, NORMOCEPHALIC - Eye Exam Eye Exam: Normal appearance Pupil Exam: PERRL - Respiratory Exam Respiratory Exam: Clear to PA & Lateral, UNREMARKABLE - Cardiovascular Exam Cardiovascular Exam: +S1, +S2 - GI/Abdominal Exam GI & Abdominal Exam: Normal Bowel Sounds, Unremarkable. absent: Tenderness - Neurological Exam Neurological exam: Alert, Oriented x3 - Skin Skin Exam: Dry, Warm Additional comments: b/l lower extremities/feet with erythematous, dry and scaling changes - improved since admission Discharge Plan - Discharge Medications Prescriptions: Ciprofloxacin IV [Cipro] 400 mg IVPB Q12 5 Days metroNIDAZOLE IV 500 mg/100 ml [Flagyl IV] 500 mg IV Q8H 5 Days - Follow Up Plan Condition: GOOD Disposition: HOME/ ROUTINE Instructions: Ciprofloxacin (By mouth), Metronidazole (By mouth), Irritable Bowel Syndrome (DC), Proctitis (DC), Dehydration (DC), Leukocytosis (DC) Referrals: Edmundo Carrera Jr., MD [Medical Doctor] -
[2016-07-23 06:40] VITALS: O2SAT 97
== END 2016-07-15 15:30 | DRG 392 ==
LOC: C.ER 08:00 → C.9E 12:33 → C.3T 17:48
PROVIDERS: ADMIT Internal Medicine; ATTEND Internal Medicine
DX: R19.7 Diarrhea, unspecified (principal); B37.0 Candidal stomatitis; R13.10 Dysphagia, unspecified; E87.1 Hypo-osmolality and hyponatremia; E86.0 Dehydration; E11.9 Type 2 diabetes mellitus without complications; L85.3 Xerosis cutis; R41.0 Disorientation, unspecified; K59.00 Constipation, unspecified; J45.909 Unspecified asthma, uncomplicated; R15.9 Full incontinence of feces; D72.829 Elevated white blood cell count, unspecified; R74.0 Nonspecific elevation of levels of transaminase and lactic acid dehydrogenase [LDH]; M79.605 Pain in left leg; M79.604 Pain in right leg; K21.9 Gastro-esophageal reflux disease without esophagitis; E79.0 Hyperuricemia without signs of inflammatory arthritis and tophaceous disease; Z85.42 Personal history of malignant neoplasm of other parts of uterus; Z85.110 Personal history of malignant carcinoid tumor of bronchus and lung; Z90.2 Acquired absence of lung [part of]

== ENCOUNTER 2016-07-16 20:07 | Inpatient (IN) | payer MEDICARE, OTHER ==
[2016-07-16 20:07] VITALS: BMI 41.5
--- NOTE | 2016-07-16 20:48 | C.PDOC ---
History Of Present Illness LIMITED DUE TO POOR HISTORIAN 71 year old female pt as per family and NH, pt was referred status post mechanical fall and worsening mental status. Pt notes "I turned too fast" and fell. Pt denies any new pain or injury form the mechanical fall. Pt is unable to walk since fall due to chronic bilateral foot neuropathy. Pt is currently on Cymbalta. Pt denies fever, chills, nausea, vomiting, SOB, dizziness, abdominal pain, chest pain, or any other complaints. PER NH AND FAMILY, PT REFERRED SP FALL AND "WORSENING MS". PS WAS WALKING "I TURNED TOO FAST" AND FELL. DENIES NEW PAIN OR INJURY FROM FALL. PS UNABLE TO WALK SINCE FALL DUE TO CHRONIC B/L FOOT NEUROPATHY. CURRENTLY ON CYMBALTA. NO FEVER, NV, MARTIN, ABD PAIN, CP. RECENT DC FOR DIARRHEA, ORAL CANDIDIASIS w/PMH sig for pneumonitis, GERD, Carcinoid tumor, oral thrush, and cellulitis Time Seen by Provider: 07/16/16 20:38 Chief Complaint (Nursing): Altered Mental Status History Per: Family, Other (NH) History/Exam Limitations: Other (Limited due to poor historian) Current Symptoms Are (Timing): Still Present Exacerbating Factor(s): denies: Fever Decreased Ability To: Walk Severity: Mild Associated Symptoms: denies: Fever, Chills, Chest Pain, Vomiting, Diarrhea, Other (Abdominal pain) Past Medical History Reviewed: Historical Data, Nursing Documentation, Vital Signs Vital Signs: Last Vital Signs Temp 97.6 F 07/18/16 23:55 Pulse 75 07/19/16 06:22 Resp 20 07/18/16 23:55 BP 150/85 07/19/16 06:22 Pulse Ox 95 07/18/16 23:55 - Medical History PMH: Asthma ("MILD, NO INHALER/MEDS."-NEVER HOSPITALIZED), HTN Denies: Alzheimer's Disease, Anemia, Anxiety, Arthritis, Atrial Fibrillation , Bipolar Disorder, Bronchitis, Cardia Arrhythmia, CHF, COPD, Crohn's Disease, Dementia, Depression, Diverticulitis, Emphysema, Fractures, Gastritis, Gall Bladder Disease, HIV, Hypercholesterolemia, Hyperthyroidism, Hypothyroidism, Kidney Stones, Migraine, Mitral Valve Prolapse, Multiple Sclerosis, Osteoporosis , Pancreatitis, Paranoia, Parkinson's Disease, Peripheral Edema, Pneumonia, Post Traumatic Stress Disorder, Pulmonary Embolism, Chronic Kidney Disease, Rheumatoid Arthritis, Schizophrenia, Seizures, Sickle Cell Disease, Sexually Transmitted Disease, Sleep Apnea, TIA Surgical History: Denies: Appendectomy, CABG, Carotid Endarterectomy, Cholecystectomy, Coronary Stent, Pacemaker, Tonsillectomy Family History: States: Unknown Family Hx - Social History Hx Alcohol Use: No Hx Substance Use: No - Immunization History Hx Tetanus Toxoid Vaccination: No Hx Influenza Vaccination: No Hx Pneumococcal Vaccination: No Review Of Systems Review Of Systems: ROS cannot be obtained secondary to pt's inabilty to answer questions. Constitutional: Negative for: Fever, Chills Cardiovascular: Negative for: Chest Pain Respiratory: Negative for: Shortness of Breath Gastrointestinal: Negative for: Nausea, Vomiting, Abdominal Pain, Diarrhea ED Course And Treatment - Laboratory Results Result Diagrams: 07/19/16 07:22 07/18/16 07:21 O2 Sat by Pulse Oximetry: 96 (Room air) Pulse Ox Interpretation: Normal Progress - Data Reviewed Data Reviewed: Lab, Diagnostic imaging, EKG, Old records Disposition Counseled Patient/Family Regarding: Studies Performed, Diagnosis - Disposition Disposition: HOSPITALIZED Disposition Time: 00:35 Condition: STABLE - Clinical Impression Clinical Impression: Altered mental state, Hypokalemia Addendum Addendum: 07/19/16 07:58 SEE DOWNTIME CHART FOR FURTHER DETAILS
[2016-07-16] MEDS ORDERED: Sodium Chloride 0.9% 1,000 ML IV ONE (21:14)
[2016-07-16 21:34] LABS: VENOUS BLOOD GAS BASE EXCESS 9.2 mmol/L (0.0-2.0); VENOUS BLOOD GAS PCO2 50 mmHg (40-60); VENOUS BLOOD PH 7.45 (7.32-7.43)
[2016-07-16 21:38] LABS: CHLORIDE 97 mmol/L (98-107); POTASSIUM 2.9 mmol/L (3.6-5.2); SODIUM 135 mmol/L (132-148)
[2016-07-16 21:40] LABS: BILIRUBIN,TOTAL 0.8 mg/dL (0.2-1.3); GFR AFRICAN-AMERICAN > 60
[2016-07-16 21:41] LABS: ALB/GLOB RATIO 1.1 (1.0-2.1); ALKALINE PHOSPHATASE 153 U/L (38-126); ALT/SGPT 39 U/L (9-52); AST/SGOT 27 U/L (14-36); BLOOD UREA NITROGEN 8 mg/dL (7-17); CARBON DIOXIDE 26 mmol/L (22-30); GLUCOSE,RANDOM 78 mg/dL (65-105)
[2016-07-16 21:42] LABS: CALCIUM 7.5 mg/dl (8.6-10.4)
[2016-07-16 21:48] LABS: BASO # 0.1 K/uL (0.0-0.2); BASO % 0.6 % (0.0-2.0); EOS # 0.2 K/uL (0.0-0.7); EOS % 1.1 % (0.0-4.0); HEMATOCRIT 37.5 % (34.0-47.0); LYMPH # 1.7 K/uL (1.0-4.3); MEAN CELL VOLUME 87.9 fL (81.0-99.0); MEAN CORPUSCULAR HEMOGLOBIN 28.3 pg (27.0-31.0); MEAN CORPUSCULAR HGB CONC 32.2 g/dL (33.0-37.0); MEAN PLATELET VOLUME 8.8 fL (7.2-11.7); MONO # 0.9 K/uL (0.0-0.8); RED CELL DISTRIBUTION WIDTH 17.1 % (11.5-14.5); WHITE BLOOD COUNT 15.6 K/uL (4.8-10.8)
[2016-07-16] MEDS ORDERED: Oxycodone/Acetaminophen 5/325 mg Tab ONE (22:43)
[2016-07-16] MEDS ORDERED: Potassium Chloride 20 mEq ER Tab PO ONE (23:30)
[2016-07-17] MEDS: Potassium Chloride 40 MEQ in Sodium Chloride 0.45% 1,000 ML IV SCH ×3 (04:54→21:38)
[2016-07-17] MEDS: Mag&Al/Simet/Diphen/Lido 237 ML KIT PO SCH ×5 (04:54→21:19)
--- NOTE | 2016-07-17 07:26 | CP.PCM.PN ---
<Jessa Neil - Last Filed: 07/17/16 07:20> Subjective - Date & Time of Evaluation Date of Evaluation: 07/17/16 Time of Evaluation: 01:05 - Subjective Subjective: House Doctor Note: Patient seen and evaluated in the ED. Patient with delirium and urinary retention as per bladder scan. Patient was noted to have tachycardia on monitor. Dubon was placed and patient had 500-600 ml output. Urine appeared dark and somewhat cloudy. Urine culture and UA was sent to lab. Patient will be given one time dose of Aztreonam 1 gm IVPB. Patient admitted under Dr. Quiles. Kimberley Neil, DO- PGY 2 Objective - Vital Signs/Intake and Output Vital Signs (last 24 hours): Temp Pulse Resp BP Pulse Ox 97.7 F 110 H 20 110/60 100 07/17/16 05:18 07/17/16 05:18 07/17/16 05:18 07/17/16 05:18 07/17/16 05:18 Intake and Output: 07/17/16 07/17/16 06:59 18:59 Intake Total 260 Output Total 750 Balance -490 - Medications Medications: Current Medications Acetaminophen (Tylenol 325mg Tab) 650 mg PO Q4 PRN PRN Reason: PAIN AND TEMP OVER 101 F Famotidine (Pepcid) 20 mg PO BID [facility] Potassium Chloride 40 meq/ (Sodium Chloride) 1,020 mls @ 80 mls/hr IV .[id number] [facility] Last Admin: 07/17/16 04:54 Dose: 80 mls/hr Insulin Human Regular (Novolin R) 1 unit SC ACHS [facility] PRN Reason: Protocol Ondansetron HCl (Zofran Tab) 4 mg PO Q6 PRN PRN Reason: NAUSEA AND VOMITING Oxybutynin Chloride (Ditropan Tab) 5 mg PO TID [facility] Pneumococcal Polyvalent Vaccine (Pneumovax 23 Vaccine) 0.5 ml IM .ONCE ONE Stop: 07/18/16 14:01 Propranolol HCl (Inderal) 10 mg PO Q8 [facility] Last Admin: 07/17/16 05:20 Dose: 10 mg Saliva Substitute (First Magic Mouthwash) 5 ml PO Q4 [facility] Last Admin: 07/17/16 04:54 Dose: 5 ml <Theo Ibrahim P - Last Filed: 07/26/16 22:20> Objective - Vital Signs/Intake and Output Vital Signs (last 24 hours): Temp Pulse Resp BP Pulse Ox 97.3 F L 75 20 142/82 96 07/21/16 15:26 07/21/16 16:12 07/21/16 15:26 07/21/16 15:26 07/21/16 15:26 - Labs Labs: 07/21/16 07:30 07/21/16 07:30 PT 14.6 SECONDS (9.7-12.2) H 07/18/16 14:35 INR 1.3 07/18/16 14:35 APTT 26 SECONDS (21-34) 07/18/16 14:35 Attending/Attestation - Attestation I have personally seen and examined this patient.: Yes I have fully participated in the care of the patient.: Yes I have reviewed all pertinent clinical information, including history, physical exam and plan: Yes
[2016-07-17] MEDS ORDERED: (Novolin R) Insulin Human Regular 100 units/ml vial SC SCH (07:30)
[2016-07-17] MEDS ORDERED: Aztreonam 1 GM in Sodium Chloride 0.9% 100 ML IVPB ONE (08:00)
[2016-07-17] MEDS: (Novolin R) Insulin Human Regular 100 units/ml vial SC SCH ×4 (08:01→21:29)
--- NOTE | 2016-07-17 08:29 | RAD ---
PROCEDURE: Radiographs of the pelvis. HISTORY: TRAUMA COMPARISON: None. FINDINGS: BONES: Pelvic Bones: Generalized osteopenia Unremarkable. Hips: Generalized osteopenia; bilateral superolateral joint space narrowing with bilateral superior acetabular spurring right greater than left. JOINTS: Sacroiliac Joints: Unremarkable. Pubic Symphysis: Unremarkable. OTHER FINDINGS: The left hip is internally rotated. 1 mm right hemipelvic calcification probably a phlebolith 2 contiguous 3 mm calcifications right lateral to the L5 vertebral body level. Stool retention and prominent soft tissues/large body habitus IMPRESSION: Limited exam. Gross fracture seen. If symptoms persist/warrant consider CT and/or MRI.
--- NOTE | 2016-07-17 09:35 | CT ---
PROCEDURE: CT HEAD WITHOUT CONTRAST. HISTORY: Altered mental status. Trauma. COMPARISON: None available. TECHNIQUE: Axial computed tomography images were obtained through the head/brain without intravenous contrast. Radiation dose: Total exam DLP = one thousand six hundred ninety-four mGy-cm. This CT exam was performed using one or more of the following dose reduction techniques: Automated exposure control, adjustment of the mA and/or kV according to patient size, and/or use of iterative reconstruction technique. FINDINGS: HEMORRHAGE: No intracranial hemorrhage. BRAIN: No mass effect or edema. Scattered focal lucencies in the subcortical and periventricular white matter suggestive for chronic microvascular ischemic change. Atrophy. VENTRICLES: Age related ventriculomegaly. CALVARIUM: Unremarkable. PARANASAL SINUSES: Unremarkable as visualized. No significant inflammatory changes. MASTOID AIR CELLS: Unremarkable as visualized. No inflammatory changes. OTHER FINDINGS: Motion artifact limits evaluation. IMPRESSION: Motion artifact limits evaluation. No acute intracranial abnormality. Chronic microvascular ischemic changes. If focal neurologic deficit persists, consider MRI. These findings were preliminarily reported by doctor Amanda Watkins from [facility] at 11:55 p.m. on 07/16/2016.
[2016-07-17 10:03] LABS: URINE BILIRUBIN NEGATIVE (NEGATIVE); URINE BLOOD NEGATIVE (NEGATIVE); URINE COLOR YELLOW (YELLOW); URINE GLUCOSE (UA) NORMAL (Normal); URINE KETONE NEGATIVE (NEGATIVE)
[2016-07-17 10:04] LABS: RBC URINE < 1 /hpf (0-3); URINE BACTERIA RARE (<OCC); URINE LEUKOCYTE ESTERASE NEGATIVE Leu/uL (Negative); URINE PROTEIN NEGATIVE (NEGATIVE); URINE UROBILINOGEN NORMAL mg/dL (0.2-1.0)
--- NOTE | 2016-07-17 10:41 | RAD ---
PROCEDURE: CHEST RADIOGRAPH, 1 VIEW HISTORY: Altered mental status COMPARISON: 05/26/2016 FINDINGS: LUNGS: Prominent increased markings in the bilateral lower lung zones suggestive for infiltrate versus edema versus atelectasis. Associated small to moderate left and small right pleural effusion. Scattered nodular densities within the mid to lower lung zones bilaterally most prominent at the right lung base. Upper lobe granulomatous changes. PLEURA: As above. CARDIOVASCULAR: Cardiomegaly. Calcification at the aortic knob. OSSEOUS STRUCTURES: No significant abnormalities. VISUALIZED UPPER ABDOMEN: Normal. OTHER FINDINGS: None. IMPRESSION: Prominent increased markings in the bilateral lower lung zones suggestive for infiltrate versus edema versus atelectasis. Associated small to moderate left and small right pleural effusion. Scattered nodular densities within the mid to lower lung zones bilaterally most prominent at the right lung base. Upper lobe granulomatous changes.
--- NOTE | 2016-07-17 13:21 | RAD ---
PROCEDURE: Radiographs of the Left Shoulder HISTORY: PAIN COMPARISON: No prior. FINDINGS: BONES: . No fracture. JOINTS: . Glenohumeral and acromioclavicular mild osteoarthritis. SOFT TISSUES: Large body habitus OTHER FINDINGS: Nonspecific pleural-parenchymal opacity left upper lung zone IMPRESSION: No fracture or dislocation. Mild osteoarthrosis Left upper lung pleural-parenchymal opacity nonspecific. A noted and described on a 12/15/2015 CT chest study no osseous gross lytic lesions appreciated
--- NOTE | 2016-07-17 13:43 | CP.PCM.HP ---
History of Present Illness - History of Present Illness History of Present Illness: COMPREHENSIVE HISTORY & PHYSICAL EXAM HPI PT. WAS READMITTED TO FROM [facility] AFTER PT WAS FOUNG CONFUSED, CMS, AND HALLUCINATING PER PSYCH. PT WAS EVALUATED IN ER , PT WAS OVERMEDICATED WITH XANAX AND MS SUGGESTED BY LAST DISCHARGE TEAM. PT. ALSO HAD URINARY RETENSION REQUIRING FOLEYS . PAST HIST. 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 WAS GIVEN PO CHEMO, AFINITOR AND D /DALI DUE TO SIDE EFFECT . PT HAS F/U IN [place] IN [place]. HAS MULTIPLE ADMISSION FOR [facility] BACTEREMIA , FALLS, RENAL FAILURE PERSONAL HIST: Smoking. N Alcohol. N Allergy N Travel_- . FAMILY HIST : ROS : Constitutional: Negative FEVER CHILLS Eyes: Negative for redness, swelling, itching, discharge, vision changes, blurry vision, double vision, glaucoma, cataracts, Ears: Negative for hearing loss, ringing, , tinnitus, vertigo Nose: Negative for rhinorrhea, stuffiness, sniffing, itching, postnasal drip, discoloration, nasal congestion and epistaxis. Throat: Negative for throat clearing, sore throat, hoarseness, difficulty swallowing and difficulty speaking. Respiratory: Negative for cough, chest tightness, sputum or phlegm, chronic cough, hemoptysis, wheezing, snoring at night, pleuritic chest pain and daytime somnolence. Cardiovascular: Negative for chest pain, palpitations, orthopnea, PND, Edema of legs, leg cramps, angina, claudication, , irregular heartbeat, Neurology: Negative for irritability, muscle weakness, numbness and tingling, seizures, tremors, migraines, slurred speech, syncope, memory loss, mood changes , recurrent headaches Gastrointestinal: Negative for difficulty swallowing, diarrhea, constipation, black stools, rectal bleeding, nausea, flatulence, reflux, poor appetite, changes in bowel habits, abdominal pain Genitourinary: Negative for frequent urination, hematuria, discharge, incontinence, urinary retention, frequent UTI, Psychiatric: Negative for depression, anxiety/panic, suicidal tendencies, Musculoskeletal: Negative for swollen joints, back pain, , neck pain, morning stiffness of joints, . Skin: Negative for rash, ulcers, itching, dry skin and pigmented lesions. P/E: Constitutional: Appears stated age and in no apparent distress. Head: Normocephalic. Ears: External ear canals patent without inflammation. Tympanic membranes intact with normal light reflex and landmark. Eyes: Pupils are central, bilaterally equal, symmetrical and reacts to light with normal movements and no icterus or pallor. Nose: External nares are patent. Mucosa is pink Mouth-Throat: Good general appearance and condition. No post-pharyngeal/oropharyngeal erythema and tonsillar hypertrophy. Good dental hygiene. Neck-Lymphatic: Neck is supple with normal ROM, no thyromegaly, lymph nodes or masses. JVD is normal with no carotid bruit. Lungs:RONCHI Cardiovascular: S1 and S2 are normal with no murmurs, gallops and rub. GI Exam: No hepatomegaly. Abdomen is soft and non-tender. No Organomegaly , masses or hernias are evident and bowel sounds are normal and active. Neurology: Higher function and all cranial nerves intact, with no gross motor or sensory deficit. Superficial and deep reflexes are normal with downwards planters. No cerebellar deficit with normal gait. Musculoskeletal: No tender spots with normal curvature of the spine with no swelling or restricted ROM of the small and large joints. Extremities: Homans sign absent. Intact pulses with no pitting edema, calf tenderness or skin color changes. Skin: No rash, eruptions or abnormal skin pigmentation GLUTEAL DEC. ULCER ST. 2 LAB/RADIOLOGY: ASSESMENT : ACUTE CHANGE OF MENTAL STATUS : SEPSIS/OVERMEDICATION H/O LUNG,CARCINOID TUMOR , STABLE ?LEFT HIP FX. PLAN: SEE ORDERS Present on Admission - Present on Admission Any Indicators Present on Admission: No Past Patient History - Past Medical History & Family History Past Medical History?: Yes - Past Social History Smoking Status: Never Smoked - CARDIAC Hx Cardiac Disorders: Yes Hx Atrial Fibrillation: No Hx Cardia Arrhythmia: No Hx Congestive Heart Failure: No Hx Hypercholesterolemia: No Hx Hypertension: Yes Hx Mitral Valve Prolapse: No Hx Pacemaker: No Hx Peripheral Edema: No - PULMONARY Hx Respiratory Disorders: Yes Hx Asthma: Yes ("MILD, NO INHALER/MEDS."-NEVER HOSPITALIZED) Hx Bronchitis: No Hx Chronic Obstructive Pulmonary Disease (COPD): No Hx Emphysema: No Hx Pneumonia: No Hx Pulmonary Embolism: No Hx Sleep Apnea: No - NEUROLOGICAL Hx Neurological Disorder: Yes Hx Alzheimer's Disease: No Hx Dementia: No Hx Migraine: No Hx Multiple Sclerosis: No Hx Parkinson's Disease: No Hx Seizures: No Hx Transient Ischemic Attacks (TIA): No Other/Comment: ams recently - HEENT Hx HEENT Problems: Yes Hx Blind: No Hx Cataracts: No Hx Deafness: No Hx Difficulty Chewing: No Hx Epistaxis: No Hx Glaucoma: No Hx Macular Degeneration: No Other/Comment: uses classes - RENAL Hx Chronic Kidney Disease: No Hx Kidney Stones: No - ENDOCRINE/METABOLIC Hx Endocrine Disorders: Yes Hx Diabetes Mellitus Type 2: Yes Hx Hyperthyroidism: No Hx Hypothyroidism: No - HEMATOLOGICAL/ONCOLOGICAL Hx Blood Disorders: No Hx Anemia: No Hx Human Immunodeficiency Virus (HIV): No Hx Sickle Cell Disease: No - INTEGUMENTARY Hx Dermatological Problems: No Hx Basil Cell: No Hx Parra: No Hx Cellulitis: No Hx Eczema: No Hx Melanoma: No Hx Psoriasis: No Hx Squamous Cell: No - MUSCULOSKELETAL/RHEUMATOLOGICAL Hx Musculoskeletal Disorders: Yes Hx Arthritis: No Hx Falls: Yes Hx Fractures: No Hx Osteoporosis: No Hx Rheumatoid Arthritis: No Other/Comment: neuropathy lower extremities - GASTROINTESTINAL Hx Gastrointestinal Disorders: No Hx Crohn's Disease: No Hx Diverticulitis: No Hx Gall Bladder Disease: No Hx Gastritis: No Hx Pancreatitis: No - GENITOURINARY/GYNECOLOGICAL Hx Genitourinary Disorders: No Hx Sexually Transmitted Disorders: No - PSYCHIATRIC Hx Psychophysiologic Disorder: No Hx Anxiety: No Hx Bipolar Disorder: No Hx Depression: No Hx Paranoia: No Hx Post Traumatic Stress Disorder: No Hx Schizophrenia: No Hx Substance Use: No - SURGICAL HISTORY Hx Surgeries: Yes Hx Appendectomy: No Hx Carotid Endarterectomy: No Hx Cholecystectomy: No Hx Coronary Artery Bypass Graft: No Hx Coronary Stent: No Hx Tonsillectomy: No Other/Comment: removal left lobe 1990s - ANESTHESIA Hx Anesthesia: Yes Hx Anesthesia Reactions: No Hx Malignant Hyperthermia: No Has any member of the family had a problem w/ anesthesia?: No Meds Allergies/Adverse Reactions: Allergies Allergy/AdvReac Type Severity Reaction Status Date / Time Penicillins Allergy Verified 07/16/16 20:35 Results - Vital Signs Recent Vital Signs: Last Vital Signs Temp 98 F 07/17/16 13:15 Pulse 110 H 07/17/16 08:05 Resp 20 07/17/16 07:00 BP 132/84 07/17/16 13:15 Pulse Ox 99 07/17/16 07:00 - Labs Result Diagrams: 07/16/16 21:22 07/16/16 21:22 Labs: Laboratory Results - last 24 hr 07/17/16 07/17/16 06:22 12:04 POC Glucose (mg/dL) 76 84
--- NOTE | 2016-07-17 13:43 | CP.PCM.PN ---
Subjective - Date & Time of Evaluation Date of Evaluation: 07/17/16 Time of Evaluation: 13:42 - Subjective Subjective: D/W SON Objective - Vital Signs/Intake and Output Vital Signs (last 24 hours): Temp Pulse Resp BP Pulse Ox 98 F 110 H 20 132/84 99 07/17/16 13:15 07/17/16 08:05 07/17/16 07:00 07/17/16 13:15 07/17/16 07:00 Intake and Output: 07/17/16 07/17/16 11:59 23:59 Intake Total 260 Output Total 750 Balance -490 - Medications Medications: Current Medications Acetaminophen (Tylenol 325mg Tab) 650 mg PO Q4 PRN PRN Reason: PAIN AND TEMP OVER 101 F Famotidine (Pepcid) 20 mg PO BID [facility] Last Admin: 07/17/16 10:01 Dose: 20 mg Potassium Chloride 40 meq/ (Sodium Chloride) 1,020 mls @ 80 mls/hr IV .[id number] [facility] Last Admin: 07/17/16 04:54 Dose: 80 mls/hr Insulin Human Regular (Novolin R) 0 unit SC ACHS [facility] PRN Reason: Protocol Last Admin: 07/17/16 08:01 Dose: Not Given Ondansetron HCl (Zofran Tab) 4 mg PO Q6 PRN PRN Reason: NAUSEA AND VOMITING Last Admin: 07/17/16 10:01 Dose: 4 mg Oxybutynin Chloride (Ditropan Tab) 5 mg PO TID [facility] Last Admin: 07/17/16 13:17 Dose: 5 mg Pneumococcal Polyvalent Vaccine (Pneumovax 23 Vaccine) 0.5 ml IM .ONCE ONE Stop: 07/18/16 14:01 Propranolol HCl (Inderal) 10 mg PO Q8 [facility] Last Admin: 07/17/16 13:17 Dose: 10 mg Saliva Substitute (First Magic Mouthwash) 5 ml PO Q4 [facility] Last Admin: 07/17/16 13:17 Dose: 5 ml
--- NOTE | 2016-07-17 13:56 | PCM.URO ---
Urology Progress Note - Objective Lab Results Last 24 Hours: Laboratory Results - last 24 hr 07/17/16 07/17/16 06:22 12:04 POC Glucose (mg/dL) 76 84 Intake & Output: Intake & Output 07/16/16 07/17/16 07/17/16 18:59 06:59 18:59 Intake Total 260 Output Total 750 Balance -490 Intake: Intake, IV Amount 160 Left Hand 160 Oral 100 Output: Urine 750 Urethral (Dubon) 750 Other: Voiding Method Indwelling Catheter Vital Signs: Vital Signs - 24 hr 07/17/16 07/17/16 07/17/16 02:42 03:00 03:01 Temperature Pulse Rate 110 H 109 H Respiratory 18 Rate Blood Pressure 136/89 O2 Sat by Pulse 96 99 Oximetry 07/17/16 07/17/16 07/17/16 03:05 05:18 07:00 Temperature 98.4 F 97.7 F 97.4 F L Pulse Rate 94 H 110 H 87 Respiratory 20 20 20 Rate Blood Pressure 134/93 H 110/60 120/75 O2 Sat by Pulse 99 100 99 Oximetry 07/17/16 07/17/16 08:05 13:15 Temperature 98 F Pulse Rate 110 H Respiratory Rate Blood Pressure 132/84 O2 Sat by Pulse Oximetry
[2016-07-17 14:57] LABS: CHLORIDE 98 mmol/L (98-107); SODIUM 139 mmol/L (132-148)
[2016-07-17 14:58] LABS: POTASSIUM 3.7 mmol/L (3.6-5.2)
[2016-07-17 14:59] LABS: GFR AFRICAN-AMERICAN > 60
[2016-07-17 15:00] LABS: ALKALINE PHOSPHATASE 144 U/L (38-126); ALT/SGPT 40 U/L (9-52); AST/SGOT 22 U/L (14-36); BLOOD UREA NITROGEN 11 mg/dL (7-17); CALCIUM 7.3 mg/dl (8.6-10.4); CARBON DIOXIDE 28 mmol/L (22-30); GLUCOSE,RANDOM 72 mg/dL (65-105); TOTAL PROTEIN 5.1 g/dL (6.3-8.3)
--- NOTE | 2016-07-17 16:59 | CP.PCM.CON ---
History of Present Illness - History of Present Illness History of Present Illness: INFECTIOUS DISEASE CONSULT; HPI : 71-year-old female moderately obese with history of pneumonia, GERD, carcinoid tumor, oral thrush, and cellulitis lower extremities was was transferred to subacute rehabilitation at [facility] on 07/15/16 now referred to ER status post fall and worsening mental status. On admission patient was found to have leukocytosis and urinary retention. Patient had a Dillon catheter placed in the ER and appropriately cultured and was given a dose of IV Azactam. Infectious disease consultation requested by PMD for further evaluation for leukocytosis and possible urosepsis.Patient also REPORTED TO HAVE SACRAL AND BILATERAL FEET DECUBITUS ULCERS. On interviewing patient presently denies pain in the back or pelvis but does give history of chronic bilateral foot neuropathy. Patient denies cough, chest pain or shortness of breath. Denies abdominal pain , nausea, vomiting and diarrhea or constipation. During her last admission patient was having diarrhea and stool C. difficile was reported negative. Patient is intermittently incontinent of feaces. Patient denies any headache but as per her son was initially complaining off left shoulder pain and pelvic pain. Family at bedside. PATIENT WAS DISCHARGED ON BY MOUTH CIPRO AND iv FLAGYL TO [facility] FOR CELLULITIS AND DIARRHEA. 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 absent: Chest Pain, Dyspnea - Respiratory Respiratory: absent: Cough - Gastrointestinal Gastrointestinal: Fecal Incontinence. absent: Abdominal Pain, Nausea, Vomiting - Genitourinary Genitourinary: Difficulty Urinating, Dysuria, Bladder Distension - Reproductive: Female Reproductive:Female: Post Menopausal - Musculoskeletal Musculoskeletal: Limited Range of Motion - Integumentary Integumentary: Rash Additional comments: MULTIPLE BRUISES ON THE ARMS. - Neurological Neurological: absent: Headaches - Psychiatric Psychiatric: Anxiety, Confusion, Depression - Hematologic/Lymphatic Hematologic: As Per HPI Past Patient History - Past Medical History & Family History Past Medical History?: Yes - Past Social History Smoking Status: Never Smoked - CARDIAC Hx Cardiac Disorders: Yes Hx Atrial Fibrillation: No Hx Cardia Arrhythmia: No Hx Congestive Heart Failure: No Hx Hypercholesterolemia: No Hx Hypertension: Yes Hx Mitral Valve Prolapse: No Hx Pacemaker: No Hx Peripheral Edema: No - PULMONARY Hx Respiratory Disorders: Yes Hx Asthma: Yes ("MILD, NO INHALER/MEDS."-NEVER HOSPITALIZED) Hx Bronchitis: No Hx Chronic Obstructive Pulmonary Disease (COPD): No Hx Emphysema: No Hx Pneumonia: No Hx Pulmonary Embolism: No Hx Sleep Apnea: No - NEUROLOGICAL Hx Neurological Disorder: Yes Hx Alzheimer's Disease: No Hx Dementia: No Hx Migraine: No Hx Multiple Sclerosis: No Hx Parkinson's Disease: No Hx Seizures: No Hx Transient Ischemic Attacks (TIA): No Other/Comment: ams recently - HEENT Hx HEENT Problems: Yes Hx Blind: No Hx Cataracts: No Hx Deafness: No Hx Difficulty Chewing: No Hx Epistaxis: No Hx Glaucoma: No Hx Macular Degeneration: No Other/Comment: uses classes - RENAL Hx Chronic Kidney Disease: No Hx Kidney Stones: No - ENDOCRINE/METABOLIC Hx Endocrine Disorders: Yes Hx Diabetes Mellitus Type 2: Yes Hx Hyperthyroidism: No Hx Hypothyroidism: No - HEMATOLOGICAL/ONCOLOGICAL Hx Blood Disorders: No Hx Anemia: No Hx Human Immunodeficiency Virus (HIV): No Hx Sickle Cell Disease: No - INTEGUMENTARY Hx Dermatological Problems: No Hx Basil Cell: No Hx Parra: No Hx Cellulitis: No Hx Eczema: No Hx Melanoma: No Hx Psoriasis: No Hx Squamous Cell: No - MUSCULOSKELETAL/RHEUMATOLOGICAL Hx Musculoskeletal Disorders: Yes Hx Arthritis: No Hx Falls: Yes Hx Fractures: No Hx Osteoporosis: No Hx Rheumatoid Arthritis: No Other/Comment: neuropathy lower extremities - GASTROINTESTINAL Hx Gastrointestinal Disorders: No Hx Crohn's Disease: No Hx Diverticulitis: No Hx Gall Bladder Disease: No Hx Gastritis: No Hx Pancreatitis: No - GENITOURINARY/GYNECOLOGICAL Hx Genitourinary Disorders: No Hx Sexually Transmitted Disorders: No - PSYCHIATRIC Hx Psychophysiologic Disorder: No Hx Anxiety: No Hx Bipolar Disorder: No Hx Depression: No Hx Paranoia: No Hx Post Traumatic Stress Disorder: No Hx Schizophrenia: No Hx Substance Use: No - SURGICAL HISTORY Hx Surgeries: Yes Hx Appendectomy: No Hx Carotid Endarterectomy: No Hx Cholecystectomy: No Hx Coronary Artery Bypass Graft: No Hx Coronary Stent: No Hx Tonsillectomy: No Other/Comment: removal left lobe 1990s - ANESTHESIA Hx Anesthesia: Yes Hx Anesthesia Reactions: No Hx Malignant Hyperthermia: No Has any member of the family had a problem w/ anesthesia?: No Meds Allergies/Adverse Reactions: Allergies Allergy/AdvReac Type Severity Reaction Status Date / Time Penicillins Allergy Verified 07/16/16 20:35 - Medications Medications: Current Medications Acetaminophen (Tylenol 325mg Tab) 650 mg PO Q4 PRN PRN Reason: PAIN AND TEMP OVER 101 F Famotidine (Pepcid) 20 mg PO BID [facility] Last Admin: 07/17/16 10:01 Dose: 20 mg Potassium Chloride 40 meq/ (Sodium Chloride) 1,020 mls @ 80 mls/hr IV .[id number] [facility] Last Admin: 07/17/16 04:54 Dose: 80 mls/hr Insulin Human Regular (Novolin R) 0 unit SC ACHS [facility] PRN Reason: Protocol Last Admin: 07/17/16 11:30 Dose: Not Given Ondansetron HCl (Zofran Tab) 4 mg PO Q6 PRN PRN Reason: NAUSEA AND VOMITING Last Admin: 07/17/16 10:01 Dose: 4 mg Oxybutynin Chloride (Ditropan Tab) 5 mg PO TID [facility] Last Admin: 07/17/16 13:17 Dose: 5 mg Pneumococcal Polyvalent Vaccine (Pneumovax 23 Vaccine) 0.5 ml IM .ONCE ONE Stop: 07/18/16 14:01 Propranolol HCl (Inderal) 10 mg PO Q8 [facility] Last Admin: 07/17/16 13:17 Dose: 10 mg Saliva Substitute (First Magic Mouthwash) 5 ml PO Q4 [facility] Last Admin: 07/17/16 13:17 Dose: 5 ml Results - Vital Signs Recent Vital Signs: Last Vital Signs Temp 97.9 F 07/17/16 15:18 Pulse 86 07/17/16 15:18 Resp 20 07/17/16 15:18 BP 134/76 07/17/16 15:18 Pulse Ox 96 07/17/16 15:18 - Labs Result Diagrams: 07/19/16 07:22 07/19/16 07:22 Labs: Laboratory Results - last 24 hr 07/17/16 07/17/16 07/17/16 06:22 12:04 14:26 Sodium 139 Potassium 3.7 Chloride 98 Carbon Dioxide 28 Anion Gap 17 BUN 11 Creatinine 0.5 L Est GFR ( Amer) > 60 Est GFR (Non-Af Amer) > 60 POC Glucose (mg/dL) 76 84 Random Glucose 72 Calcium 7.3 L Total Bilirubin 1.0 AST 22 ALT 40 Alkaline Phosphatase 144 H Total Protein 5.1 L Albumin 2.6 L Globulin 2.5 Albumin/Globulin Ratio 1.0 07/17/16 16:06 Sodium Potassium Chloride Carbon Dioxide Anion Gap BUN Creatinine Est GFR ( Amer) Est GFR (Non-Af Amer) POC Glucose (mg/dL) 81 Random Glucose Calcium Total Bilirubin AST ALT Alkaline Phosphatase Total Protein Albumin Globulin Albumin/Globulin Ratio - Imaging and Cardiology Chest x-ray Status: Report reviewed by me (left upper lung pleural parenchymal opacity. Nonspecific.) Assessment & Plan (1) Altered mental state Status: Acute (2) Leukocytosis Status: Acute (3) Acute urinary retention Status: Acute (4) Carcinoid tumor of lung Status: Acute (5) Fracture of left hip Status: Acute (6) Status post fall Status: Acute - Assessment and Plan (Free Text) Plan: IMPRESSION; -ALTERED MENTAL STATUS-SEPSIS VS POLYPHARMACY. -ACUTE URINARY RETENTION S/P Dillon. -rULE OUT UROSEPSIS. -HX CARCINOID TUMOR OF LUNG METASTATIC -S/P FALL -? LT HIP FRACTURE. PLAN; PANCULTURES CONTINUE iv AZACTAM 1 G EVERY 8 HOURLY 07/17/16. nO iv ACCESS-PATIENT GOT 1 DOSE OF iv aZACTAM. picc LINE IN A.M. bY MOUTH fLAGYL 250 MG 3 TIMES A DAY.07/17/16 DC ALL UNNECESSARY MEDS IF FEASIBLE STOOLS FOR c. DIFFICILE TOXIN. START iv aZACTAM SOON iv ACCESS OBTAINED. ORTHOPEDIC EVALUATION IN PROGRESS. EVALUATION IN PROGRESS. PATIENT HAS PRESENTLY Dillon CATHETER IN PLACE. SACRAL AND FEET DECUBITUS WOUND CARE IN A.M. CASE DISCUSSED WITH THE SON WHO WAS AT THE BEDSIDE WILL FOLLOW ALONG WITH YOU WHILE PATIENT IN HOSPITAL.
--- NOTE | 2016-07-17 20:42 | CON ---
DATE: 07/17/2016 The patient was admitted by Dr. Quiles with a diagnosis of readmission from a rehab center after patient was found confused. The patient was also hallucinating. I was called in to evaluate the pelvis for possible fracture. Examination revealed a disoriented elderly female who is not oriented to time and space. She is not offering any complaints. I had the opportunity to evaluate the x-rays of the left shoulder which are negative for fractures at this location. X-ray of the pelvis reveals some chronic changes of the pubic symphysis area with no evidence of fractures. At this point, the patient , on examination, is not complaining of any pain. No areas of tenderness noted over the pelvic area or the shoulder. The patient would not cooperate as far as range of motion of the left shoulder is concerned. DIAGNOSIS: At this point, negative examination with limited range of motion of the left shoulder. Will follow. Once again, I had the opportunity to examine the x-rays of the left shoulder which are negative for fractures at this location. X-rays of the pelvis did not reveal any evidence of acute fractures at this location. Danielle Crews MD cc: [id number] TT: 07/17/2016 20:41:57 Confirmation # [id number] Dictation # [id number] eddie KELSEY
[2016-07-17] MEDS: Aztreonam 1 GM in Sodium Chloride 0.9% 100 ML IVPB SCH (23:52)
[2016-07-18] MEDS: Mag&Al/Simet/Diphen/Lido 237 ML KIT PO SCH ×6 (00:18→21:00)
[2016-07-18 07:29] LABS: BASO % 0.1 % (0.0-2.0); EOS # 0.2 K/uL (0.0-0.7); EOS % 1.9 % (0.0-4.0); HEMATOCRIT 33.3 % (34.0-47.0); LYMPH # 1.3 K/uL (1.0-4.3); LYMPH % 10.9 % (20.0-40.0); MEAN CELL VOLUME 88.5 fL (81.0-99.0); MEAN CORPUSCULAR HEMOGLOBIN 28.8 pg (27.0-31.0); MEAN CORPUSCULAR HGB CONC 32.5 g/dL (33.0-37.0); MEAN PLATELET VOLUME 8.7 fL (7.2-11.7); MONO # 0.9 K/uL (0.0-0.8); MONO % 8.1 % (0.0-10.0); NRBC % 0.1 % (0.0-2.0); RED CELL DISTRIBUTION WIDTH 17.2 % (11.5-14.5); WHITE BLOOD COUNT 11.6 K/uL (4.8-10.8)
[2016-07-18 07:44] LABS: CHLORIDE 98 mmol/L (98-107); POTASSIUM 3.8 mmol/L (3.6-5.2); SODIUM 135 mmol/L (132-148)
[2016-07-18 07:46] LABS: BILIRUBIN,TOTAL 0.9 mg/dL (0.2-1.3); CARBON DIOXIDE 27 mmol/L (22-30); GFR AFRICAN-AMERICAN > 60
[2016-07-18 07:47] LABS: ALKALINE PHOSPHATASE 147 U/L (38-126); ALT/SGPT 39 U/L (9-52); AST/SGOT 22 U/L (14-36); BLOOD UREA NITROGEN 11 mg/dL (7-17); CALCIUM 7.4 mg/dl (8.6-10.4); GLUCOSE,RANDOM 64 mg/dL (65-105); TOTAL PROTEIN 4.9 g/dL (6.3-8.3)
[2016-07-18] MEDS: Aztreonam 1 GM in Sodium Chloride 0.9% 100 ML IVPB SCH ×3 (08:16→22:31)
[2016-07-18] MEDS: (Novolin R) Insulin Human Regular 100 units/ml vial SC SCH ×4 (08:51→22:00)
--- NOTE | 2016-07-18 10:05 | PCM.URO ---
Urology Progress Note - Objective Lab Results Last 24 Hours: Laboratory Results - last 24 hr 07/17/16 07/17/16 07/17/16 12:04 14:26 16:06 WBC RBC Hgb Hct MCV MCH MCHC RDW Plt Count MPV Neut % (Auto) Lymph % (Auto) Early % (Auto) Eos % (Auto) Baso % (Auto) Neut # Lymph # Early # Eos # Baso # Sodium 139 Potassium 3.7 Chloride 98 Carbon Dioxide 28 Anion Gap 17 BUN 11 Creatinine 0.5 L Est GFR ( Amer) > 60 Est GFR (Non-Af Amer) > 60 POC Glucose (mg/dL) 84 81 Random Glucose 72 Calcium 7.3 L Total Bilirubin 1.0 AST 22 ALT 40 Alkaline Phosphatase 144 H Total Protein 5.1 L Albumin 2.6 L Globulin 2.5 Albumin/Globulin Ratio 1.0 07/17/16 07/18/16 07/18/16 20:59 06:25 07:17 WBC RBC Hgb Hct MCV MCH MCHC RDW Plt Count MPV Neut % (Auto) Lymph % (Auto) Early % (Auto) Eos % (Auto) Baso % (Auto) Neut # Lymph # Early # Eos # Baso # Sodium Potassium Chloride Carbon Dioxide Anion Gap BUN Creatinine Est GFR ( Amer) Est GFR (Non-Af Amer) POC Glucose (mg/dL) 79 70 75 Random Glucose Calcium Total Bilirubin AST ALT Alkaline Phosphatase Total Protein Albumin Globulin Albumin/Globulin Ratio 07/18/16 07:21 WBC 11.6 H RBC 3.76 L Hgb 10.8 L Hct 33.3 L MCV 88.5 MCH 28.8 MCHC 32.5 L RDW 17.2 H Plt Count 180 MPV 8.7 Neut % (Auto) 79.0 H Lymph % (Auto) 10.9 L Early % (Auto) 8.1 Eos % (Auto) 1.9 Baso % (Auto) 0.1 Neut # 9.1 H Lymph # 1.3 Early # 0.9 H Eos # 0.2 Baso # 0.0 Sodium 135 Potassium 3.8 Chloride 98 Carbon Dioxide 27 Anion Gap 13 BUN 11 Creatinine 0.6 L Est GFR ( Amer) > 60 Est GFR (Non-Af Amer) > 60 POC Glucose (mg/dL) Random Glucose 64 L Calcium 7.4 L Total Bilirubin 0.9 AST 22 ALT 39 Alkaline Phosphatase 147 H Total Protein 4.9 L Albumin 2.5 L Globulin 2.4 Albumin/Globulin Ratio 1.0 Intake & Output: Intake & Output 07/17/16 07/18/16 07/18/16 18:59 06:59 18:59 Intake Total 1000 890 Output Total 150 450 Balance 850 -450 890 Weight 242 lb 4.8 oz Intake: Intake, IV Amount 640 740 Left Hand 640 740 Oral 360 150 Output: Urine 150 450 Urethral (Dubon) 150 450 Other: # Bowel Movements 0 Vital Signs: Vital Signs - 24 hr 07/17/16 07/17/16 07/17/16 13:15 15:18 16:00 Temperature 98 F 97.9 F Pulse Rate 86 86 Respiratory 20 Rate Blood Pressure 132/84 134/76 O2 Sat by Pulse 96 Oximetry 07/17/16 07/18/16 07/18/16 23:30 00:00 04:00 Temperature 97.4 F L Pulse Rate 77 78 90 Respiratory 20 Rate Blood Pressure 135/83 O2 Sat by Pulse 94 L Oximetry 07/18/16 07/18/16 06:27 08:19 Temperature 97.9 F Pulse Rate 78 82 Respiratory 20 Rate Blood Pressure 133/80 126/70 O2 Sat by Pulse 95 Oximetry
[2016-07-18] MEDS: Potassium Chloride 40 MEQ in Sodium Chloride 0.45% 1,000 ML IV SCH ×2 (13:29→18:00)
--- NOTE | 2016-07-18 13:32 | CP.PCM.PN ---
Subjective - Date & Time of Evaluation Date of Evaluation: 07/18/16 Time of Evaluation: 13:30 - Subjective Subjective: CHIEF COMPLAINTS TODAY : GEN. WEAKNESS ROS. HEENT : N. Resp : No cough, wheezing ,pleuritic CP ,or hemoptysis Cardio : No anginal CP, PND, orthopnea, palpitation GI : No abd.pain, n/v ,diarrhea or GI bleeding . STAFF AUDITOR : No headache, vertigo, focal deficit. Musculoskel : No joint swelling , PAIN LOWER EXT Derm : No rash Psych : Normal affect. Ext : No swelling ,calf pain PE. Pt. is alert awake in no distress. V.S As noted in the chart Head ,ear nose,throat and eyes : Normal. DRY MOUTH Neck : Supple with normal carotids. Lungs: Clear air entry. Heart : S1 & S2 normal with S4. No murmur. Abd : Soft non tender with normal bowel sounds. Neuro : Moves all ext. with no localized deficit. ROM RESTRICTED LOWER EXT Ext : No edema with intact pulses.Non tender calves Derm :GRADE 1 decubitus ulcer. LEFT SCARUM LABS/RADIOLOGY: ASSESSMENT/PLAN :PICC LINE IV AB ORTH R/OUT ACUTE FX. Objective - Vital Signs/Intake and Output Vital Signs (last 24 hours): Temp Pulse Resp BP Pulse Ox 97.9 F 82 20 126/70 95 07/18/16 08:19 07/18/16 08:19 07/18/16 08:19 07/18/16 08:19 07/18/16 08:19 Intake and Output: 07/18/16 07/18/16 11:59 23:59 Intake Total 890 Output Total 250 Balance 640 - Medications Medications: Current Medications Acetaminophen (Tylenol 325mg Tab) 650 mg PO Q4 PRN PRN Reason: PAIN AND TEMP OVER 101 F Famotidine (Pepcid) 20 mg PO BID [facility] Last Admin: 07/18/16 10:00 Dose: 20 mg Potassium Chloride 40 meq/ (Sodium Chloride) 1,020 mls @ 80 mls/hr IV .[id number] [facility] Last Admin: 07/18/16 13:29 Dose: 80 mls/hr Aztreonam 1 gm/ Sodium (Chloride) 100 mls @ 100 mls/hr IVPB Q8H [facility] Last Admin: 07/18/16 08:16 Dose: 100 mls/hr Insulin Human Regular (Novolin R) 0 unit SC ACHS [facility] PRN Reason: Protocol Last Admin: 07/18/16 11:51 Dose: Not Given Metronidazole (Flagyl) 250 mg PO Q8H [facility] Last Admin: 07/18/16 06:26 Dose: 250 mg Ondansetron HCl (Zofran Tab) 4 mg PO Q6 PRN PRN Reason: NAUSEA AND VOMITING Last Admin: 07/17/16 10:01 Dose: 4 mg Oxybutynin Chloride (Ditropan Tab) 5 mg PO TID [facility] Last Admin: 07/18/16 10:00 Dose: 5 mg Pneumococcal Polyvalent Vaccine (Pneumovax 23 Vaccine) 0.5 ml IM .ONCE ONE Stop: 07/18/16 14:01 Propranolol HCl (Inderal) 10 mg PO Q8 [facility] Last Admin: 07/18/16 06:26 Dose: 10 mg Saliva Substitute (First Magic Mouthwash) 5 ml PO Q4 [facility] Last Admin: 07/18/16 11:59 Dose: 5 ml - Labs Labs: 07/18/16 07:21 07/18/16 07:21
[2016-07-18] MEDS ORDERED: Pneumococcal 23-Valent Vaccine IM ONE (14:00)
--- NOTE | 2016-07-18 14:05 | RAD ---
PROCEDURE: CHEST RADIOGRAPH, 1 VIEW. Technique: Single view portable semi erect @ 13:15. HISTORY: verify left PICC COMPARISON: 07/16/2016. FINDINGS: LUNGS: Stable pulmonary vascular congestion. PLEURA: No pneumothorax or pleural fluid seen. CARDIOVASCULAR: Cardiomegaly/mild CHF. OSSEOUS STRUCTURES: No significant abnormalities. VISUALIZED UPPER ABDOMEN: Normal. OTHER FINDINGS: Recently introduced PICC line left upper extremity approach: The tip is at the junction of the left subclavian vein and superior vena cava. No pneumothorax IMPRESSION: No adverse findings/ no pneumothorax following PICC line introduction.
--- NOTE | 2016-07-18 14:16 | CP.PCM.PN ---
Subjective - Date & Time of Evaluation Date of Evaluation: 07/18/16 Time of Evaluation: 14:16 - Subjective Subjective: CHIEF COMPLAINTS TODAY : AFEBRILE, MORE AWAKE. S/P picc LINE IN PLACE. C/O generalized weakness. denies any pain except in the back and lower extremities. ROS. HEENT : N. Resp : No cough, wheezing ,pleuritic CP ,or hemoptysis Cardio : No anginal CP, PND, orthopnea, palpitation GI : No abd.pain, n/v ,diarrhea or GI bleeding . CITY MANAGER : No headache, vertigo, focal deficit. Musculoskel : No joint swelling , PAIN LOWER EXT Derm : No rash Psych : Normal affect. Ext : No swelling ,calf pain PE. Pt. is alert awake in no distress. V.S As noted in the chart Head ,ear nose,throat and eyes : Normal. DRY MOUTH Neck : Supple with normal carotids. Lungs: Clear air entry. Heart : S1 & S2 normal with S4. No murmur. Abd : Soft non tender with normal bowel sounds. Neuro : Moves all ext. with no localized deficit. ROM RESTRICTED LOWER EXT Ext : No edema with intact pulses.Non tender calves Derm :GRADE 1 decubitus ulcer. LEFT SCARUM LABS/RADIOLOGY: noted Objective - Vital Signs/Intake and Output Vital Signs (last 24 hours): Temp Pulse Resp BP Pulse Ox 97.9 F 82 20 126/70 95 07/18/16 08:19 07/18/16 08:19 07/18/16 08:19 07/18/16 08:19 07/18/16 08:19 Intake and Output: 07/18/16 07/18/16 06:59 18:59 Intake Total 890 Output Total 450 Balance -450 890 - Medications Medications: Current Medications Acetaminophen (Tylenol 325mg Tab) 650 mg PO Q4 PRN PRN Reason: PAIN AND TEMP OVER 101 F Famotidine (Pepcid) 20 mg PO BID [facility] Last Admin: 07/18/16 10:00 Dose: 20 mg Potassium Chloride 40 meq/ (Sodium Chloride) 1,020 mls @ 80 mls/hr IV .[id number] [facility] Last Admin: 07/18/16 13:29 Dose: 80 mls/hr Aztreonam 1 gm/ Sodium (Chloride) 100 mls @ 100 mls/hr IVPB Q8H [facility] Last Admin: 07/18/16 14:01 Dose: 100 mls/hr Insulin Human Regular (Novolin R) 0 unit SC ACHS [facility] PRN Reason: Protocol Last Admin: 07/18/16 11:51 Dose: Not Given Metronidazole (Flagyl) 250 mg PO Q8H [facility] Last Admin: 07/18/16 13:58 Dose: 250 mg Ondansetron HCl (Zofran Tab) 4 mg PO Q6 PRN PRN Reason: NAUSEA AND VOMITING Last Admin: 07/17/16 10:01 Dose: 4 mg Oxybutynin Chloride (Ditropan Tab) 5 mg PO TID [facility] Last Admin: 07/18/16 13:58 Dose: 5 mg Propranolol HCl (Inderal) 10 mg PO Q8 [facility] Last Admin: 07/18/16 13:59 Dose: 10 mg Saliva Substitute (First Magic Mouthwash) 5 ml PO Q4 [facility] Last Admin: 07/18/16 11:59 Dose: 5 ml - Labs Labs: 07/18/16 07:21 07/18/16 07:21 Assessment and Plan (1) Altered mental state Status: Acute (2) Leukocytosis Status: Acute (3) Acute urinary retention Status: Acute (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 -rULE OUT UROSEPSIS. -HX CARCINOID TUMOR OF LUNG METASTATIC -S/P FALL -? LT HIP FRACTURE. PLAN; CONTINUE iv AZACTAM 1 G EVERY 8 HOURLY 07/17/16 x5days by MOUTH fLAGYL 250 MG 3 TIMES A DAY.07/17/16 x 5days DC ALL UNNECESSARY MEDS IF FEASIBLE STOOLS FOR c. DIFFICILE TOXIN.-p ORTHOPEDIC EVALUATION NOTED. nO FRACTURES. pATIENT WILL NEED AGGRESSIVE PT. ON BOARD FOR ACUTE URINARY RETENTION. CASE DISCUSSED WITH MR PELON PANDEY WHO IS PROVIDING CARE TO THE PATIENT.
[2016-07-18 14:55] LABS: INR 1.3
--- NOTE | 2016-07-18 16:10 | RAD ---
PROCEDURE: CHEST RADIOGRAPH, 1 VIEW. Technique: Single view portable semi erect @ 15:35. HISTORY: verify left PICC COMPARISON: July 18, 2016. Employing similar portable technique performed at 13:15. FINDINGS: LUNGS: No significant interval change compared to the prior examination(s). PLEURA: No pneumothorax following PICC line placement. CARDIOVASCULAR: Stable position of PICC line. OSSEOUS STRUCTURES: No significant abnormalities. VISUALIZED UPPER ABDOMEN: Normal. OTHER FINDINGS: None. IMPRESSION: No significant interval change compared to the prior examination(s). PICC line remains at the junction of the left subclavian vein and SVC
--- NOTE | 2016-07-18 16:40 | RAD ---
HISTORY: oblique view for PICC replacement COMPARISON: Multiple serial examinations preceding the most recent study: July 18, 2016. FINDINGS: LUNGS: No significant interval change compared to the prior examination(s). PLEURA: No significant interval change compared to the prior examination(s). CARDIOVASCULAR: PICC line in satisfactory position the tip is within 4 cm of the cavoatrial junction. OSSEOUS STRUCTURES: No significant abnormalities. VISUALIZED UPPER ABDOMEN: Normal. OTHER FINDINGS: None. IMPRESSION: Confirmation of satisfactory position of recently placed PICC line. The tip is within 4 cm of the cavoatrial junction. No interval change with respect to pulmonary parenchymal, pleural and cardiovascular structures.
[2016-07-19] MEDS: Mag&Al/Simet/Diphen/Lido 237 ML KIT PO SCH ×6 (00:31→21:58)
[2016-07-19] MEDS ORDERED: Bisacodyl 5mg EC Tab PO ONE (00:41)
[2016-07-19] MEDS: Potassium Chloride 40 MEQ in Sodium Chloride 0.45% 1,000 ML IV SCH ×2 (04:55→19:31)
[2016-07-19] MEDS: Aztreonam 1 GM in Sodium Chloride 0.9% 100 ML IVPB SCH ×2 (06:23→14:19)
[2016-07-19 07:38] LABS: CHLORIDE 98 mmol/L (98-107); POTASSIUM 4.1 mmol/L (3.6-5.2); SODIUM 133 mmol/L (132-148)
[2016-07-19 07:40] LABS: ALKALINE PHOSPHATASE 187 U/L (38-126); AST/SGOT 25 U/L (14-36); BILIRUBIN,TOTAL 1.2 mg/dL (0.2-1.3); CARBON DIOXIDE 27 mmol/L (22-30); GFR AFRICAN-AMERICAN > 60; TOTAL PROTEIN 5.3 g/dL (6.3-8.3)
[2016-07-19 07:41] LABS: ALT/SGPT 39 U/L (9-52); BASO % 0.1 % (0.0-2.0); BLOOD UREA NITROGEN 9 mg/dL (7-17); CALCIUM 7.3 mg/dl (8.6-10.4); EOS # 0.2 K/uL (0.0-0.7); EOS % 1.3 % (0.0-4.0); GLUCOSE,RANDOM 70 mg/dL (65-105); HEMATOCRIT 33.9 % (34.0-47.0); LYMPH # 1.2 K/uL (1.0-4.3); LYMPH % 10.5 % (20.0-40.0); MEAN CELL VOLUME 88.8 fL (81.0-99.0); MEAN CORPUSCULAR HEMOGLOBIN 28.7 pg (27.0-31.0); MEAN CORPUSCULAR HGB CONC 32.3 g/dL (33.0-37.0); MEAN PLATELET VOLUME 8.6 fL (7.2-11.7); MONO # 0.9 K/uL (0.0-0.8); MONO % 7.8 % (0.0-10.0); RED CELL DISTRIBUTION WIDTH 17.1 % (11.5-14.5); WHITE BLOOD COUNT 11.6 K/uL (4.8-10.8)
[2016-07-19] MEDS: (Novolin R) Insulin Human Regular 100 units/ml vial SC SCH ×4 (08:40→21:59)
--- NOTE | 2016-07-19 13:35 | CP.PCM.PN ---
Subjective - Date & Time of Evaluation Date of Evaluation: 07/19/16 Time of Evaluation: 13:34 - Subjective Subjective: CHIEF COMPLAINTS TODAY : GEN. WEAKNESS ROS. HEENT : N. Resp : No cough, wheezing ,pleuritic CP ,or hemoptysis Cardio : No anginal CP, PND, orthopnea, palpitation GI : No abd.pain, n/v ,diarrhea or GI bleeding . 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 Musculoskel : No joint swelling , PAIN LOWER EXT Derm : No rash Psych : Normal affect. Ext : No swelling ,calf pain PE. Pt. is alert awake in no distress. V.S As noted in the chart Head ,ear nose,throat and eyes : Normal. DRY MOUTH Neck : Supple with normal carotids. Lungs: Clear air entry. Heart : S1 & S2 normal with S4. No murmur. Abd : Soft non tender with normal bowel sounds. Neuro : Moves all ext. with no localized deficit. ROM RESTRICTED LOWER EXT Ext : No edema with intact pulses.Non tender calves Derm :GRADE 1 decubitus ulcer. LEFT SCARUM LABS/RADIOLOGY: ASSESSMENT/PLAN :PICC LINE IV AB ORTH R/OUT ACUTE FX. REHAB AT [facility] Objective - Vital Signs/Intake and Output Vital Signs (last 24 hours): Temp Pulse Resp BP Pulse Ox 97.6 F 79 20 127/68 96 07/19/16 07:15 07/19/16 07:15 07/19/16 07:15 07/19/16 07:15 07/19/16 07:59 Intake and Output: 07/19/16 07/19/16 11:59 23:59 Intake Total 790 Output Total 675 Balance 115 - Medications Medications: Current Medications Acetaminophen (Tylenol 325mg Tab) 650 mg PO Q4 PRN PRN Reason: PAIN AND TEMP OVER 101 F Last Admin: 07/19/16 08:50 Dose: 650 mg Famotidine (Pepcid) 20 mg PO BID [facility] Last Admin: 07/19/16 09:06 Dose: 20 mg Potassium Chloride 40 meq/ (Sodium Chloride) 1,020 mls @ 80 mls/hr IV .[id number] [facility] Last Admin: 07/19/16 04:55 Dose: 80 mls/hr Aztreonam 1 gm/ Sodium (Chloride) 100 mls @ 100 mls/hr IVPB Q8H [facility] Last Admin: 07/19/16 06:23 Dose: 100 mls/hr Insulin Human Regular (Novolin R) 0 unit SC ACHS [facility] PRN Reason: Protocol Last Admin: 07/19/16 11:50 Dose: Not Given Metronidazole (Flagyl) 250 mg PO Q8H [facility] Last Admin: 07/19/16 06:24 Dose: 250 mg Ondansetron HCl (Zofran Tab) 4 mg PO Q6 PRN PRN Reason: NAUSEA AND VOMITING Last Admin: 07/17/16 10:01 Dose: 4 mg Oxybutynin Chloride (Ditropan Tab) 5 mg PO TID [facility] Last Admin: 07/19/16 09:06 Dose: 5 mg Propranolol HCl (Inderal) 10 mg PO Q8 [facility] Last Admin: 07/19/16 06:24 Dose: 10 mg Saliva Substitute (First Magic Mouthwash) 5 ml PO Q4 [facility] Last Admin: 07/19/16 08:51 Dose: 5 ml - Labs Labs: 07/19/16 07:22 07/19/16 07:22 PT 14.6 SECONDS (9.7-12.2) H 07/18/16 14:35 INR 1.3 07/18/16 14:35 APTT 26 SECONDS (21-34) 07/18/16 14:35
--- NOTE | 2016-07-19 20:27 | CP.PCM.PN ---
Subjective - Date & Time of Evaluation Date of Evaluation: 07/19/16 Time of Evaluation: 20:27 - Subjective Subjective: CHIEF COMPLAINTS TODAY : AFEBRILE, MORE AWAKE. S/P picc LINE IN PLACE. CONFUSED OFF AND ON denies any pain except in the back and lower extremities. ROS. HEENT : N. Resp : No cough, wheezing ,pleuritic CP ,or hemoptysis Cardio : No anginal CP, PND, orthopnea, palpitation GI : No abd.pain, n/v ,diarrhea or GI bleeding . COLOR CARD MAKER : No headache, vertigo, focal deficit. Musculoskel : No joint swelling , PAIN LOWER EXT Derm : No rash Psych : Normal affect. Ext : No swelling ,calf pain PE. Pt. is alert awake in no distress. V.S As noted in the chart Head ,ear nose,throat and eyes : Normal. DRY MOUTH Neck : Supple with normal carotids. Lungs: Clear air entry. Heart : S1 & S2 normal with S4. No murmur. Abd : Soft non tender with normal bowel sounds. Neuro : Moves all ext. with no localized deficit. ROM RESTRICTED LOWER EXT Ext : No edema with intact pulses.Non tender calves Derm :GRADE 1 decubitus ulcer. LEFT SCARUM LABS/RADIOLOGY: noted Objective - Vital Signs/Intake and Output Vital Signs (last 24 hours): Temp Pulse Resp BP Pulse Ox 98.1 F 81 20 154/86 H 95 07/19/16 15:59 07/19/16 15:59 07/19/16 15:59 07/19/16 15:59 07/19/16 15:59 Intake and Output: 07/19/16 07/20/16 18:59 06:59 Intake Total 790 Output Total 800 Balance -10 - Medications Medications: Current Medications Acetaminophen (Tylenol 325mg Tab) 650 mg PO Q4 PRN PRN Reason: PAIN AND TEMP OVER 101 F Last Admin: 07/19/16 08:50 Dose: 650 mg Famotidine (Pepcid) 20 mg PO BID [facility] Last Admin: 07/19/16 19:34 Dose: 20 mg Potassium Chloride 40 meq/ (Sodium Chloride) 1,020 mls @ 80 mls/hr IV .[id number] [facility] Last Admin: 07/19/16 19:31 Dose: 80 mls/hr Aztreonam 1 gm/ Sodium (Chloride) 100 mls @ 100 mls/hr IVPB Q8H [facility] Last Admin: 07/19/16 14:19 Dose: 100 mls/hr Insulin Human Regular (Novolin R) 0 unit SC ACHS [facility] PRN Reason: Protocol Last Admin: 07/19/16 19:34 Dose: Not Given Metronidazole (Flagyl) 250 mg PO Q8H [facility] Last Admin: 07/19/16 13:34 Dose: 250 mg Ondansetron HCl (Zofran Tab) 4 mg PO Q6 PRN PRN Reason: NAUSEA AND VOMITING Last Admin: 07/19/16 13:35 Dose: 4 mg Oxybutynin Chloride (Ditropan Tab) 5 mg PO TID [facility] Last Admin: 07/19/16 19:31 Dose: 5 mg Propranolol HCl (Inderal) 10 mg PO Q8 [facility] Last Admin: 07/19/16 13:34 Dose: 10 mg Saliva Substitute (First Magic Mouthwash) 5 ml PO Q4 [facility] Last Admin: 07/19/16 19:35 Dose: 5 ml - Labs Labs: 07/19/16 07:22 07/19/16 07:22 PT 14.6 SECONDS (9.7-12.2) H 07/18/16 14:35 INR 1.3 07/18/16 14:35 APTT 26 SECONDS (21-34) 07/18/16 14:35 Assessment and Plan (1) Altered mental state Status: Acute (2) Leukocytosis Status: Acute (3) Acute urinary retention Status: Acute (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 - UROSEPSIS.( URINE CULTURE -VE NOW PT ON ABX ) -HX CARCINOID TUMOR OF LUNG METASTATIC -S/P FALL -? LT HIP FRACTURE. PLAN; CONTINUE iv AZACTAM 1 G EVERY 8 HOURLY 07/17/16 x5days by MOUTH fLAGYL 250 MG 3 TIMES A DAY.07/17/16 x 5days DC ALL UNNECESSARY MEDS IF FEASIBLE STOOLS FOR c. DIFFICILE TOXIN.-p ORTHOPEDIC EVALUATION NOTED. nO FRACTURES. pATIENT WILL NEED AGGRESSIVE PT. ON BOARD FOR ACUTE URINARY RETENTION.
[2016-07-20] MEDS: Aztreonam 1 GM in Sodium Chloride 0.9% 100 ML IVPB SCH ×4 (01:13→22:24)
[2016-07-20] MEDS: Mag&Al/Simet/Diphen/Lido 237 ML KIT PO SCH ×6 (01:13→21:38)
[2016-07-20 07:42] LABS: BASO % 0.3 % (0.0-2.0); EOS # 0.2 K/uL (0.0-0.7); EOS % 1.5 % (0.0-4.0); HEMATOCRIT 35.7 % (34.0-47.0); LYMPH # 1.1 K/uL (1.0-4.3); MEAN CELL VOLUME 88.8 fL (81.0-99.0); MEAN CORPUSCULAR HEMOGLOBIN 28.6 pg (27.0-31.0); MEAN CORPUSCULAR HGB CONC 32.2 g/dL (33.0-37.0); MEAN PLATELET VOLUME 8.6 fL (7.2-11.7); MONO % 8.7 % (0.0-10.0); WHITE BLOOD COUNT 11.1 K/uL (4.8-10.8)
[2016-07-20] MEDS: (Novolin R) Insulin Human Regular 100 units/ml vial SC SCH ×4 (07:54→22:00)
[2016-07-20 07:55] LABS: CHLORIDE 92 mmol/L (98-107); SODIUM 131 mmol/L (132-148)
[2016-07-20 07:57] LABS: GFR AFRICAN-AMERICAN > 60
[2016-07-20 07:58] LABS: ALKALINE PHOSPHATASE 199 U/L (38-126); ALT/SGPT 36 U/L (9-52); AST/SGOT 32 U/L (14-36); BILIRUBIN,TOTAL 1.2 mg/dL (0.2-1.3); BLOOD UREA NITROGEN 6 mg/dL (7-17); CARBON DIOXIDE 29 mmol/L (22-30); GLUCOSE,RANDOM 77 mg/dL (65-105); TOTAL PROTEIN 5.1 g/dL (6.3-8.3)
[2016-07-20 07:59] LABS: CALCIUM 7.5 mg/dl (8.6-10.4)
--- NOTE | 2016-07-20 08:58 | CARD ---
APPROVED REPORT EKG Measurement Heart [id number] <Conclusion> sinus tachy Inferior infarct, age undetermined nonspec. t wave abn Abnormal ECG
[2016-07-20] MEDS ORDERED: Potassium Chloride 40 MEQ in Sodium Chloride 0.45% 1,000 ML IV SCH (13:00)
--- NOTE | 2016-07-20 14:24 | CP.PCM.PN ---
Subjective - Date & Time of Evaluation Date of Evaluation: 07/20/16 Time of Evaluation: 14:24 - Subjective Subjective: CHIEF COMPLAINTS TODAY : GEN. WEAKNESS ROS. HEENT : N. Resp : No cough, wheezing ,pleuritic CP ,or hemoptysis Cardio : No anginal CP, PND, orthopnea, palpitation GI : No abd.pain, n/v ,diarrhea or GI bleeding . 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 Musculoskel : No joint swelling , PAIN LOWER EXT Derm : No rash Psych : Normal affect. Ext : No swelling ,calf pain PE. Pt. is alert awake in no distress. V.S As noted in the chart Head ,ear nose,throat and eyes : Normal. DRY MOUTH Neck : Supple with normal carotids. Lungs: Clear air entry. Heart : S1 & S2 normal with S4. No murmur. Abd : Soft non tender with normal bowel sounds. Neuro : Moves all ext. with no localized deficit. ROM RESTRICTED LOWER EXT Ext : No edema with intact pulses.Non tender calves Derm :GRADE 1 decubitus ulcer. LEFT SCARUM LABS/RADIOLOGY: ASSESSMENT/PLAN :PICC LINE IV AB ORTH R/OUT ACUTE FX. REHAB AT [facility] Objective - Vital Signs/Intake and Output Vital Signs (last 24 hours): Temp Pulse Resp BP Pulse Ox 97.7 F 78 20 136/81 96 07/20/16 07:00 07/20/16 08:43 07/20/16 07:00 07/20/16 07:00 07/20/16 07:00 Intake and Output: 07/20/16 07/20/16 11:59 23:59 Output Total 800 Balance -800 - Medications Medications: Current Medications Acetaminophen (Tylenol 325mg Tab) 650 mg PO Q4 PRN PRN Reason: PAIN AND TEMP OVER 101 F Last Admin: 07/19/16 08:50 Dose: 650 mg Famotidine (Pepcid) 20 mg PO BID [facility] Last Admin: 07/20/16 10:27 Dose: 20 mg Aztreonam 1 gm/ Sodium (Chloride) 100 mls @ 100 mls/hr IVPB Q8H [facility] Last Admin: 07/20/16 08:07 Dose: 100 mls/hr Potassium Chloride 40 meq/ (Sodium Chloride) 1,020 mls @ 80 mls/hr IV .[id number] [facility] Last Admin: 07/20/16 13:25 Dose: 80 mls/hr Insulin Human Regular (Novolin R) 0 unit SC ACHS [facility] PRN Reason: Protocol Last Admin: 07/20/16 13:27 Dose: Not Given Metronidazole (Flagyl) 250 mg PO Q8H [facility] Last Admin: 07/20/16 13:26 Dose: 250 mg Ondansetron HCl (Zofran Tab) 4 mg PO Q6 PRN PRN Reason: NAUSEA AND VOMITING Last Admin: 07/19/16 13:35 Dose: 4 mg Oxybutynin Chloride (Ditropan Tab) 5 mg PO TID [facility] Last Admin: 07/20/16 10:28 Dose: 5 mg Propranolol HCl (Inderal) 10 mg PO Q8 [facility] Last Admin: 07/20/16 13:26 Dose: 10 mg Saliva Substitute (First Magic Mouthwash) 5 ml PO Q4 [facility] Last Admin: 07/20/16 12:43 Dose: 5 ml - Labs Labs: 07/20/16 07:36 07/20/16 07:36 PT 14.6 SECONDS (9.7-12.2) H 07/18/16 14:35 INR 1.3 07/18/16 14:35 APTT 26 SECONDS (21-34) 07/18/16 14:35
[2016-07-21] MEDS: Mag&Al/Simet/Diphen/Lido 237 ML KIT PO SCH ×5 (00:46→17:00)
[2016-07-21] MEDS: Aztreonam 1 GM in Sodium Chloride 0.9% 100 ML IVPB SCH ×2 (06:02→14:44)
[2016-07-21 07:47] LABS: BASO % 0.4 % (0.0-2.0); EOS # 0.2 K/uL (0.0-0.7); EOS % 1.3 % (0.0-4.0); HEMATOCRIT 35.8 % (34.0-47.0); LYMPH # 1.1 K/uL (1.0-4.3); LYMPH % 8.6 % (20.0-40.0); MEAN CELL VOLUME 88.3 fL (81.0-99.0); MEAN CORPUSCULAR HEMOGLOBIN 28.7 pg (27.0-31.0); MEAN CORPUSCULAR HGB CONC 32.5 g/dL (33.0-37.0); MEAN PLATELET VOLUME 8.7 fL (7.2-11.7); MONO % 7.7 % (0.0-10.0); PLATELET COUNT 188 K/uL (130-400); RED CELL DISTRIBUTION WIDTH 17.3 % (11.5-14.5); WHITE BLOOD COUNT 13.2 K/uL (4.8-10.8)
[2016-07-21 07:56] LABS: CHLORIDE 92 mmol/L (98-107); SODIUM 131 mmol/L (132-148)
[2016-07-21 07:57] LABS: POTASSIUM 3.6 mmol/L (3.6-5.2)
[2016-07-21] MEDS: (Novolin R) Insulin Human Regular 100 units/ml vial SC SCH ×3 (07:58→17:32)
[2016-07-21 07:59] LABS: ALKALINE PHOSPHATASE 277 U/L (38-126); ALT/SGPT 38 U/L (9-52); AST/SGOT 47 U/L (14-36); BILIRUBIN,TOTAL 1.5 mg/dL (0.2-1.3); BLOOD UREA NITROGEN 6 mg/dL (7-17); CARBON DIOXIDE 31 mmol/L (22-30); GFR AFRICAN-AMERICAN > 60; GLUCOSE,RANDOM 83 mg/dL (65-105); TOTAL PROTEIN 5.1 g/dL (6.3-8.3)
[2016-07-21 08:00] LABS: CALCIUM 7.6 mg/dl (8.6-10.4)
[2016-07-21 08:34] LABS: EOSINOPHIL 3 % (0-4); METAMYELOCYTE 1 % (0-0); NEUTROPHIL 70 % (50-75); TOTAL CELLS COUNTED 100
--- NOTE | 2016-07-21 13:18 | CP.PCM.PN ---
Subjective - Date & Time of Evaluation Date of Evaluation: 07/21/16 Time of Evaluation: 13:17 - Subjective Subjective: CHIEF COMPLAINTS TODAY : AFEBRILE, MORE AWAKE. S/P picc LINE IN PLACE. CONFUSED OFF AND ON denies any pain except in the back and lower extremities. S/P FOLYS SECONDARY TO ACUTE URINARY RETENTION ROS. HEENT : N. Resp : No cough, wheezing ,pleuritic CP ,or hemoptysis Cardio : No anginal CP, PND, orthopnea, palpitation GI : No abd.pain, n/v ,diarrhea or GI bleeding . 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 Musculoskel : No joint swelling , PAIN LOWER EXT Derm : No rash Psych : Normal affect. Ext : No swelling ,calf pain PE. Pt. is alert awake in no distress. V.S As noted in the chart Head ,ear nose,throat and eyes : Normal. DRY MOUTH Neck : Supple with normal carotids. Lungs: Clear air entry. Heart : S1 & S2 normal with S4. No murmur. Abd : Soft non tender with normal bowel sounds. Neuro : Moves all ext. with no localized deficit. ROM RESTRICTED LOWER EXT Ext : No edema with intact pulses.Non tender calves Derm :GRADE 1 decubitus ulcer. LEFT SCARUM LABS/RADIOLOGY: noted Objective - Vital Signs/Intake and Output Vital Signs (last 24 hours): Temp Pulse Resp BP Pulse Ox 98 F 84 17 114/70 98 07/21/16 07:05 07/21/16 07:05 07/21/16 07:05 07/21/16 07:05 07/21/16 07:05 Intake and Output: 07/21/16 07/21/16 06:59 18:59 Intake Total 940 Output Total 2200 Balance -1260 - Medications Medications: Current Medications Acetaminophen (Tylenol 325mg Tab) 650 mg PO Q4 PRN PRN Reason: PAIN AND TEMP OVER 101 F Last Admin: 07/21/16 12:55 Dose: 650 mg Famotidine (Pepcid) 20 mg PO BID [facility] Last Admin: 07/21/16 10:34 Dose: 20 mg Aztreonam 1 gm/ Sodium (Chloride) 100 mls @ 100 mls/hr IVPB Q8H [facility] Last Admin: 07/21/16 06:02 Dose: 100 mls/hr Potassium Chloride 40 meq/ (Sodium Chloride) 1,020 mls @ 80 mls/hr IV .[id number] [facility] Last Admin: 07/20/16 13:25 Dose: 80 mls/hr Insulin Human Regular (Novolin R) 0 unit SC ACHS [facility] PRN Reason: Protocol Last Admin: 07/21/16 07:58 Dose: Not Given Metronidazole (Flagyl) 250 mg PO Q8H [facility] Last Admin: 07/21/16 06:43 Dose: 250 mg Ondansetron HCl (Zofran Tab) 4 mg PO Q6 PRN PRN Reason: NAUSEA AND VOMITING Last Admin: 07/21/16 12:55 Dose: 4 mg Oxybutynin Chloride (Ditropan Tab) 5 mg PO TID [facility] Last Admin: 07/21/16 10:34 Dose: 5 mg Propranolol HCl (Inderal) 10 mg PO Q8 [facility] Last Admin: 07/21/16 06:06 Dose: 10 mg Saliva Substitute (First Magic Mouthwash) 5 ml PO Q4 [facility] Last Admin: 07/21/16 08:39 Dose: 5 ml - Labs Labs: 07/21/16 07:30 07/21/16 07:30 PT 14.6 SECONDS (9.7-12.2) H 07/18/16 14:35 INR 1.3 07/18/16 14:35 APTT 26 SECONDS (21-34) 07/18/16 14:35 Assessment and Plan (1) Altered mental state Status: Acute (2) Leukocytosis Status: Acute (3) Acute urinary retention Status: Acute (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 - UROSEPSIS.( URINE CULTURE -VE NOW PT ON ABX ) -HX CARCINOID TUMOR OF LUNG METASTATIC -S/P FALL PLAN; CONTINUE iv AZACTAM 1 G EVERY 8 HOURLY 07/17/16 x5days by MOUTH fLAGYL 250 MG 3 TIMES A DAY.07/17/16 x 5days DC ALL UNNECESSARY MEDS IF FEASIBLE STOOLS FOR c. DIFFICILE TOXIN.-p F/U LFTS. ORTHOPEDIC EVALUATION NOTED. nO FRACTURES. pATIENT WILL NEED AGGRESSIVE PT. ON BOARD FOR ACUTE URINARY RETENTION. PATIENT HAS A [facility] CATHETER, FOLLOW-UP WITH .. CASE DISCUSSED WITH STAFF
--- NOTE | 2016-07-21 13:38 | CP.PCM.PN ---
Subjective - Date & Time of Evaluation Date of Evaluation: 07/21/16 Time of Evaluation: 13:38 - Subjective Subjective: CHIEF COMPLAINTS TODAY : GEN. WEAKNESS ROS. HEENT : N. Resp : No cough, wheezing ,pleuritic CP ,or hemoptysis Cardio : No anginal CP, PND, orthopnea, palpitation GI : No abd.pain, n/v ,diarrhea or GI bleeding . 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 Musculoskel : No joint swelling , PAIN LOWER EXT Derm : No rash Psych : Normal affect. Ext : No swelling ,calf pain PE. Pt. is alert awake in no distress. V.S As noted in the chart Head ,ear nose,throat and eyes : Normal. DRY MOUTH Neck : Supple with normal carotids. Lungs: Clear air entry. Heart : S1 & S2 normal with S4. No murmur. Abd : Soft non tender with normal bowel sounds. Neuro : Moves all ext. with no localized deficit. ROM RESTRICTED LOWER EXT Ext : No edema with intact pulses.Non tender calves Derm :GRADE 1 decubitus ulcer. LEFT SCARUM LABS/RADIOLOGY: ASSESSMENT/PLAN :PICC LINE IV AB ORTH R/OUT ACUTE FX. REHAB AT [facility] Objective - Vital Signs/Intake and Output Vital Signs (last 24 hours): Temp Pulse Resp BP Pulse Ox 98 F 84 17 114/70 98 07/21/16 07:05 07/21/16 07:05 07/21/16 07:05 07/21/16 07:05 07/21/16 07:05 Intake and Output: 07/21/16 07/21/16 11:59 23:59 Output Total 1100 Balance -1100 - Medications Medications: Current Medications Acetaminophen (Tylenol 325mg Tab) 650 mg PO Q4 PRN PRN Reason: PAIN AND TEMP OVER 101 F Last Admin: 07/21/16 12:55 Dose: 650 mg Famotidine (Pepcid) 20 mg PO BID [facility] Last Admin: 07/21/16 10:34 Dose: 20 mg Aztreonam 1 gm/ Sodium (Chloride) 100 mls @ 100 mls/hr IVPB Q8H [facility] Last Admin: 07/21/16 06:02 Dose: 100 mls/hr Potassium Chloride 40 meq/ (Sodium Chloride) 1,020 mls @ 80 mls/hr IV .[id number] [facility] Last Admin: 07/20/16 13:25 Dose: 80 mls/hr Insulin Human Regular (Novolin R) 0 unit SC ACHS RASHAWN PRN Reason: Protocol Last Admin: 07/21/16 13:23 Dose: Not Given Metronidazole (Flagyl) 250 mg PO Q8H [facility] Last Admin: 07/21/16 13:23 Dose: 250 mg Ondansetron HCl (Zofran Tab) 4 mg PO Q6 PRN PRN Reason: NAUSEA AND VOMITING Last Admin: 07/21/16 12:55 Dose: 4 mg Oxybutynin Chloride (Ditropan Tab) 5 mg PO TID [facility] Last Admin: 07/21/16 13:22 Dose: 5 mg Propranolol HCl (Inderal) 10 mg PO Q8 [facility] Last Admin: 07/21/16 13:23 Dose: 10 mg Saliva Substitute (First Magic Mouthwash) 5 ml PO Q4 [facility] Last Admin: 07/21/16 13:22 Dose: 5 ml - Labs Labs: 07/21/16 07:30 07/21/16 07:30 PT 14.6 SECONDS (9.7-12.2) H 07/18/16 14:35 INR 1.3 07/18/16 14:35 APTT 26 SECONDS (21-34) 07/18/16 14:35
[2016-07-21 15:27] VITALS: BP 142/82; RESP 20; TEMP 97.3; O2SAT 96
[2016-07-21 19:49] VITALS: PULSE 75
--- NOTE | 2016-07-22 13:44 | CP.PCM.DIS ---
Provider - Provider Date of Admission: 07/17/16 01:15 Attending physician: Adriana Quiles MD Time Spent in preparation of Discharge (in minutes): 30 Hospital Course - Lab Results Lab Results: Most Recent Lab Values WBC 13.2 K/uL (4.8-10.8) H 07/21/16 07:30 RBC 4.05 Mil/uL (3.80-5.20) 07/21/16 07:30 Hgb 11.6 g/dL (11.0-16.0) 07/21/16 07:30 Hct 35.8 % (34.0-47.0) 07/21/16 07:30 MCV 88.3 fL (81.0-99.0) 07/21/16 07:30 MCH 28.7 pg (27.0-31.0) 07/21/16 07:30 MCHC 32.5 g/dL (33.0-37.0) L 07/21/16 07:30 RDW 17.3 % (11.5-14.5) H 07/21/16 07:30 Plt Count 188 K/uL (130-400) 07/21/16 07:30 MPV 8.7 fL (7.2-11.7) 07/21/16 07:30 Neut % (Auto) 82.0 % (50.0-75.0) H 07/21/16 07:30 Lymph % (Auto) 8.6 % (20.0-40.0) L 07/21/16 07:30 [place] % (Auto) 7.7 % (0.0-10.0) 07/21/16 07:30 Eos % (Auto) 1.3 % (0.0-4.0) 07/21/16 07:30 Baso % (Auto) 0.4 % (0.0-2.0) 07/21/16 07:30 Neut # 10.8 K/uL (1.8-7.0) H 07/21/16 07:30 Lymph # 1.1 K/uL (1.0-4.3) 07/21/16 07:30 [place] # 1.0 K/uL (0.0-0.8) H 07/21/16 07:30 Eos # 0.2 K/uL (0.0-0.7) 07/21/16 07:30 Baso # 0.0 K/uL (0.0-0.2) 07/21/16 07:30 Neutrophils % (Manual) 70 % (50-75) 07/21/16 07:30 Band Neutrophils % 6 % (0-2) H 07/21/16 07:30 Lymphocytes % (Manual) 10 % (20-40) L 07/21/16 07:30 Monocytes % (Manual) 10 % (0-10) 07/21/16 07:30 Eosinophils % (Manual) 3 % (0-4) 07/21/16 07:30 Metamyelocytes % 1 % (0-0) H 07/21/16 07:30 Platelet Estimate Normal (NORMAL) 07/21/16 07:30 Anisocytosis (manual) Slight 07/21/16 07:30 PT 14.6 SECONDS (9.7-12.2) H 07/18/16 14:35 INR 1.3 07/18/16 14:35 APTT 26 SECONDS (21-34) 07/18/16 14:35 pO2 23 mm/Hg (30-55) L 07/16/16 21:28 VBG pH 7.45 (7.32-7.43) H 07/16/16 21:28 VBG pCO2 50 mmHg (40-60) 07/16/16 21:28 VBG HCO3 30.6 mmol/L 07/16/16 21:28 VBG Total CO2 36.3 mmol/L (22-28) H 07/16/16 21:28 VBG O2 Sat (Calc) 41.0 % (40-65) 07/16/16 21:28 VBG Base Excess 9.2 mmol/L (0.0-2.0) H 07/16/16 21:28 VBG Potassium 3.6 mmol/L (3.6-5.2) 07/16/16 21:28 Sodium 140.0 mmol/l (132-148) 07/16/16 21:28 Chloride 105.0 mmol/L (98-107) 07/16/16 21:28 Glucose 84 mg/dl (65-105) 07/16/16 21:28 Lactate 1.3 mmol/L (0.7-2.1) 07/16/16 21:28 Sodium 131 mmol/L (132-148) L 07/21/16 07:30 Potassium 3.6 mmol/L (3.6-5.2) 07/21/16 07:30 Chloride 92 mmol/L (98-107) L 07/21/16 07:30 Carbon Dioxide 31 mmol/L (22-30) H 07/21/16 07:30 Anion Gap 12 (10-20) 07/21/16 07:30 BUN 6 mg/dL (7-17) L 07/21/16 07:30 Creatinine 0.5 MG/DL (0.7-1.2) L 07/21/16 07:30 Est GFR ( Amer) > 60 07/21/16 07:30 Est GFR (Non-Af Amer) > 60 07/21/16 07:30 POC Glucose (mg/dL) 86 mg/dL (65-110) 07/21/16 16:50 Random Glucose 83 mg/dL (65-105) 07/21/16 07:30 Calcium 7.6 mg/dl (8.6-10.4) L 07/21/16 07:30 Total Bilirubin 1.5 mg/dL (0.2-1.3) H 07/21/16 07:30 AST 47 U/L (14-36) H D 07/21/16 07:30 ALT 38 U/L (9-52) 07/21/16 07:30 Alkaline Phosphatase 277 U/L (38-126) H D 07/21/16 07:30 Total Protein 5.1 g/dL (6.3-8.3) L 07/21/16 07:30 Albumin 2.6 g/dL (3.5-5.0) L 07/21/16 07:30 Globulin 2.6 gm/dL (2.2-3.9) 07/21/16 07:30 Albumin/Globulin Ratio 1.0 (1.0-2.1) 07/21/16 07:30 Venous Blood Potassium 3.6 mmol/L (3.6-5.2) 07/16/16 21:28 Urine Color Yellow (YELLOW) 07/16/16 21:14 Urine Clarity Clear (Clear) 07/16/16 21:14 Urine pH 6.0 (5.0-8.0) 07/16/16 21:14 Ur Specific [place] 1.010 (1.003-1.030) 07/16/16 21:14 Urine Protein Negative mg/dL (NEGATIVE) 07/16/16 21:14 Urine Glucose (UA) Normal mg/dL (Normal) 07/16/16 21:14 Urine Ketones Negative mg/dL (NEGATIVE) 07/16/16 21:14 Urine Blood Negative (NEGATIVE) 07/16/16 21:14 Urine Nitrate Negative (NEGATIVE) 07/16/16 21:14 Urine Bilirubin Negative (NEGATIVE) 07/16/16 21:14 Urine Urobilinogen Normal mg/dL (0.2-1.0) 07/16/16 21:14 Ur Leukocyte Esterase Negative [place]/uL (Negative) 07/16/16 21:14 Urine RBC (Auto) < 1 /hpf (0-3) 07/16/16 21:14 Urine Bacteria Rare (<OCC) 07/16/16 21:14 - Hospital Course Hospital Course: PT. WAS READMITTED TO FROM [facility] AFTER PT WAS FOUNG CONFUSED, CMS, AND HALLUCINATING PER PSYCH. PT WAS EVALUATED IN ER , PT WAS OVERMEDICATED WITH XANAX AND MS SUGGESTED BY LAST DISCHARGE TEAM. PT. ALSO HAD URINARY RETENSION REQUIRING FOLEYS . PAST HIST. 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 WAS GIVEN PO CHEMO, AFINITOR AND D /DALI DUE TO SIDE EFFECT . PT HAS F/U IN [facility]. HAS MULTIPLE ADMISSION FOR [facility] , FALLS, RENAL FAILURE ID /RTHO CONSULTED THERE WS NO FURTHER EVIDENCE OF ACUTE FX. PT HAD UTI WITH URINARY RETENSION PT WAS IMOROVING ON IV AB WITH NO FURTHER ACUTE PROCESS PT WAS TRANS. TO [facility] Discharge Plan - Follow Up Plan Condition: STABLE Disposition: REHAB FACILITY/REHAB UNIT Instructions: Complete Blenderized Diet (DC), Leukocytosis (DC), Altered Mental Status (GEN) Additional Instructions: Please admit patient under Dr. Cowan service Continue medication as per Med. Rec. LEAVE PAINTER CATH - NEEDS APPOINTMENT WITH DR. CORDON BEFORE D/C Referrals: Rebekah Reid MD [Staff Provider] - Adriana Quiles MD [Staff Provider] - Danielle Crews MD [Staff Provider] - Ghassan Cordon MD [Staff Provider] - Elda Cordon MD [Staff Provider] -
--- NOTE | 2016-07-23 00:02 | PQF GENQUE ---
This form is a permanent part of the medical record Clarification of your documentation is requested to better reflect the severity of illness and intensity of treatment of your patient. Indicators present [X] Specify: [ AMS, UTI, UROSEPSIS, ] [X] Specify: [ OVERMEDICATED, HYPOKALEMIA] [X] Specify: [ HX CARCINOID TUMOR LUNG, DM, NEUROPATHY] [X] Specify: [HX UTI & PNEUMONIA, + DECUBITUS ULCERS] Location in the medical record that reflects the above clinical findings: [ ED , P.NOTES, CONSULTS] PLEASE, CLARIFY ETIOLOGY OF AMS PLEASE, CLARIFY IF SEPSIS WAS RULED IN OR RULED OUT Treatment Provided: [ANTIBIOTICS] PHYSICIAN'S RESPONSE Based on your medical judgment of the clinical indicators outlined above please clarify the following: [] Practitioner response [] If unable to determine, please check the box, sign and date. Present On Admission (POA) Indicator: [] Present at the time of admission [] Not present at the time of admission [] Clinically Undetermined In responding to this query, please exercise your independent professional judgment. The fact that a question is asked does not imply that any particular answer is desired or expected. Thank you for your clarification on this documentation. If you have any questions please call:[ ] * Thank you, [ Deysi BALL, CCS, [employer]] svp group director LOW
== END 2016-07-21 19:55 | DRG 872 ==
LOC: C.ER 20:07 → C.6T 07-17 01:15
PROVIDERS: ADMIT Internal Medicine Cardiovascular Disease; ATTEND Internal Medicine Cardiovascular Disease
PROC: 02HV33Z Insertion of Infusion Device into Superior Vena Cava, Percutaneous Approach (ICD-10-PCS; principal; 2016-07-18)
PROC: B548ZZA Ultrasonography of Superior Vena Cava, Guidance (ICD-10-PCS; 2016-07-18)
DX: A41.9 Sepsis, unspecified organism (principal); N39.0 Urinary tract infection, site not specified; R41.82 Altered mental status, unspecified; C7A.090 Malignant carcinoid tumor of the bronchus and lung; C7B.00 Secondary carcinoid tumors, unspecified site; T42.4X5A Adverse effect of benzodiazepines, initial encounter; T40.2X5A Adverse effect of other opioids, initial encounter; E87.6 Hypokalemia; R41.0 Disorientation, unspecified; L89.151 Pressure ulcer of sacral region, stage 1; L89.899 Pressure ulcer of other site, unspecified stage; K21.9 Gastro-esophageal reflux disease without esophagitis; G62.9 Polyneuropathy, unspecified; R33.8 Other retention of urine; I25.10 Atherosclerotic heart disease of native coronary artery without angina pectoris; J45.909 Unspecified asthma, uncomplicated; Z95.5 Presence of coronary angioplasty implant and graft; Z87.01 Personal history of pneumonia (recurrent); S72.002S Fracture of unspecified part of neck of left femur, sequela; Z91.81 History of falling; Z79.4 Long term (current) use of insulin; Z90.2 Acquired absence of lung [part of]